=== PATIENT | male | born 1945 | race Caucasian/White ===

== ENCOUNTER 2016-05-22 07:26 | Emergency (ER) | payer MEDICARE ==
[~2016-05-22] VITALS: Ht 170.2 cm; Wt 56.0 kg
[~2016-05-22 07:26] MED LIST: CEPH-460 PO; HYDR-3133 PO; HYDR1CRE15 TD; PERM5CRE TOPICAL
[2016-05-22 07:31] VITALS: BP 208/92; PULSE 66; RESP 20; TEMP 98.1; O2SAT 100
[2016-05-22 07:39] VITALS: BP 214/97; PULSE 66; RESP 17; TEMP 97.8; O2SAT 100
[2016-05-22] MEDS ORDERED: FUROSEMIDE 40 MG/4 ML VIAL IV PUSH ONE (08:00)
--- NOTE | 2016-05-22 08:06 | PD ---
HPI Chief Complaint: Edema Time Seen by Provider: 07:36 Travel History International Travel<30 days: No Contact w/Intl Traveler<30days: No Traveled to known affect area: No History of Present Illness HPI This 70-year-old man who presents to the emergency department complaining of foot swelling and aching bilaterally for the past 3 or 4 days. States he otherwise has been feeling well. No history of previous similar problems. Denies any injuries. Only other complaint is that he states he urinates a lot. He gets up 3-498 about him. He does feel like he goes a fair amount when he goes, denies other symptoms of bladder outlet obstruction such as weak stream, hesitancy, difficulty initiating urination. Denies any medical history. States he was treated for blood pressure some time along time ago, but is not on any medications now. No other complaints. History Past Medical History Medical History: Denies Significant Hx Influenza Vaccination: No Past Surgical History Surgical History: No Previous Surgery Social History Alcohol Use: Yes (occ) Tobacco Use: No Allergies-Medications (Allergen,Severity, Reaction): Coded Allergies: No Known Allergies (Unverified , 05/22/16) Reported Meds & Prescriptions Reported Meds & Active Scripts Active No Active Prescriptions or Reported Medications Review of Systems Except as stated in HPI: all other systems reviewed are Neg Physical Exam Narrative GENERAL: This 70-year-old man, no acute distress. SKIN: Warm and dry. HEAD: Atraumatic. Normocephalic. EYES: Pupils equal and round. No scleral icterus. No injection or drainage. ENT: No nasal bleeding or discharge. Mucous membranes pink and moist. NECK: Trachea midline. No JVD. CARDIOVASCULAR: Regular rate and rhythm. Soft systolic murmur around the apex. RESPIRATORY: No accessory muscle use. Clear to auscultation. Breath sounds equal bilaterally. No Rales. GASTROINTESTINAL: Abdomen soft, non-tender, nondistended. Hepatic and splenic margins not palpable. MUSCULOSKELETAL: No obvious deformities. Pitting edema both lower extremities around the foot and ankle. No erythema redness. No significant pain. NEUROLOGICAL: Awake and alert. No obvious cranial nerve deficits. Motor grossly within normal limits. Normal speech. Data Data Last Documented VS Vital Signs Date Time Temp Pulse Resp B/P Pulse Ox O2 Delivery O2 Flow Rate FiO2 05/22/16 08:17 190/82 05/22/16 08:09 63 1/2/17 07:39 97.8 17 100 Orders Electrocardiogram (05/22/16 07:39) Complete Blood Count With Diff (05/22/16 07:47) Basic Metabolic Panel (Bmp) (05/22/16 07:47) Chest, Pa & Lat (05/22/16 ) Troponin I (05/22/16 07:59) Furosemide Inj (Lasix Inj) (05/22/16 08:00) Labs Laboratory Tests Test 05/22/16 08:00 White Blood Count 9.0 TH/MM3 Red Blood Count 4.55 MIL/MM3 Hemoglobin 14.2 GM/DL Hematocrit 40.4 % Mean Corpuscular Volume 88.8 FL Mean Corpuscular Hemoglobin 31.2 PG Mean Corpuscular Hemoglobin 35.1 % Concent Red Cell Distribution Width 13.3 % Platelet Count 370 TH/MM3 Mean Platelet Volume 8.7 FL Neutrophils (%) (Auto) 76.9 % Lymphocytes (%) (Auto) 15.2 % Monocytes (%) (Auto) 4.9 % Eosinophils (%) (Auto) 1.8 % Basophils (%) (Auto) 1.2 % Neutrophils # (Auto) 6.9 TH/MM3 Lymphocytes # (Auto) 1.4 TH/MM3 Monocytes # (Auto) 0.4 TH/MM3 Eosinophils # (Auto) 0.2 TH/MM3 Basophils # (Auto) 0.1 TH/MM3 CBC Comment DIFF FINAL Differential Comment Sodium Level 139 MEQ/L Potassium Level 3.0 MEQ/L Chloride Level 104 MEQ/L Carbon Dioxide Level 23.6 MEQ/L Anion Gap 11 MEQ/L Blood Urea Nitrogen 7 MG/DL Creatinine 0.78 MG/DL Estimat Glomerular Filtration 98 ML/MIN Rate Random Glucose 90 MG/DL Calcium Level 9.1 MG/DL Troponin I LESS THAN 0.02 NG/ML [facility] Medical Decision Making Medical Screen Exam Complete: Yes Emergency Medical Condition: Yes Interpretation(s) My review of EKG: Normal sinus rhythm at a rate of 67, normal axis, normal intervals, probable LVH with some tall T waves in the anterior precordium and some nonspecific ST depressions laterally. No old for comparison.3 LABS: CBC is unremarkable. CMP is unremarkable Troponins negative. Chest x-ray: No acute disease. Differential Diagnosis Volume overload, renal failure, heart failure, dependent edema, other Narrative Course Medical decision making 70-year-old male presents emergent arm with edema around his feet and ankles. Sleeping in a recliner now. Some urinary abnormalities. We'll check labs rule out renal failure. There is no Rales orthopnea suggest heart failure. He does have a little bit of a murmur that could suggest valvular heart disease. We'll give him a dose of diuretics. Likely outpatient follow-up. FINAL: 70-year-old man with edema, possibly depending, revealed a little volume overloaded. Labs unremarkable. No renal failure. We'll give a couple days of Lasix with potassium, outpatient follow-up. Diagnosis Primary Impression: Edema leg Qualified Code: R60.0 - Bilateral edema of lower extremity Additional Instructions: Take Lasix for the next 3 days as prescribed. Take potassium for the next 3 days as prescribed. Follow-up with your primary physician for repeat evaluation. Sleep with her legs elevated above your head. Return to the emergency department for any new or worsening symptoms. Med/Other Pt SpecificInfo: Prescription(s) given Scripts Potassium Chloride ER 20 Meq Tab20 Meq PO DAILY 3 Days Ref 0 Prov:Luc Greer MD 05/22/16 Furosemide (Lasix)20 Mg Tab20 Mg PO DAILY 3 Days Ref 0 Prov:Luc Greer MD 05/22/16 Disposition: 01 DISCHARGE HOME Condition: Stable Luc Greer MD May 22, 2016 08:06
[2016-05-22 08:09] VITALS: BP 206/94; PULSE 63
[2016-05-22 08:17] VITALS: BP 190/82
[2016-05-22 08:17] LABS: AUTOMATED NEUTROPHIL # 6.9 TH/MM3 (1.8-7.7); BASOPHIL # 0.1 TH/MM3 (0-0.2); BASOPHIL % 1.2 % (0.0-2.0); EOSINOPHIL # 0.2 TH/MM3 (0-0.4); EOSINOPHIL % 1.8 % (0.0-4.0); HEMATOCRIT 40.4 % (39.0-51.0); HEMO FLAGS DIFF FINAL; LYMPH % 15.2 % (9.0-44.0); LYMPHOCYTE # 1.4 TH/MM3 (1.0-4.8); MEAN CELL VOLUME 88.8 FL (80.0-100.0); MEAN CORPUSCULAR HEMOGLOBIN 31.2 PG (27.0-34.0); MEAN CORPUSCULAR HGB CONC 35.1 % (32.0-36.0); MONO % 4.9 % (0.0-8.0); NEUT % 76.9 % (16.0-70.0); PLATELET COUNT 370 TH/MM3 (150-450); RED BLOOD COUNT 4.55 MIL/MM3 (4.50-5.90); RED CELL DISTRIBUTION WIDTH 13.3 % (11.6-17.2)
[2016-05-22 08:30] LABS: BICARBONATE 23.6 MEQ/L (21.0-32.0)
--- NOTE | 2016-05-22 09:00 | RADRPT ---
EXAM DATE/TIME: 05/22/2016 08:51 [facility] COMPARISON: No previous studies available for comparison. INDICATIONS : Shortness of breath, lower leg edema and pain bilaterally. MEDICAL HISTORY : None. SURGICAL HISTORY : None. ENCOUNTER: Initial ACUITY: 3 weeks PAIN SCORE: 0/10 LOCATION: Bilateral chest FINDINGS: PA and lateral views of the chest demonstrate the lungs to be symmetrically aerated without evidence of mass, infiltrate or effusion. The cardiomediastinal contours are unremarkable. Osseous structure s demonstrate high riding humeral heads bilaterally characteristic of rotator cuff pathology.. CONCLUSION: No acute disease. Jorge Rosa MD on May 22, 2016 at 8:58 Board Certified Radiologist. This report was verified electronically.
[2016-05-22] MEDS ORDERED: POTA-163 PO (09:25)
[2016-05-22] MEDS ORDERED: FURO1TAB62 PO (09:25)
[2016-05-22 09:35] VITALS: BP 143/94; PULSE 66; RESP 15; O2SAT 99
--- NOTE | 2016-05-22 18:21 | EKG ---
Date Performed: 05/22/2016 Time Performed: 07:45:56 PTAGE: 70 years EKG: Sinus rhythm POSSIBLE LEFT ATRIAL ENLARGEMENT POSSIBLE LEFT VENTRICULAR HYPERTROPHY MODERATE ST DEPRESSION Since previous tracing, no significant change noted ABNORMAL ECG PREVIOUS TRACING : 05/22/2016 07.44 DOCTOR: Melva Pimentel Interpretating Date/Time 05/22/2016 18:20:01
== END 2016-05-22 09:52 | disposition home or self-care (01) ==
LOC: NEPE 07:26
DX: R60.9 Edema, unspecified (principal); R06.02 Shortness of breath; R94.31 Abnormal electrocardiogram [ECG] [EKG]
CPT/HCPCS: 71020; 80048; 84484; 85025; 93005; 96374; 99284; J1940

== ENCOUNTER 2018-05-02 15:48 | Inpatient (IN) ==
--- NOTE | 2018-05-02 16:35 | ED ---
HPI General Chief complaint: Weakness Stated complaint: no appetite and weakness Time Seen by Provider: 05/02/18 15:52 Source: family Mode of arrival: wheelchair Limitations: altered mental status History of Present Illness MD Complaint: Reports generalized weakness Onset (ago): week(s) (3) Duration: constant and progressively worsening Location: Reports generalized Relieving factors: none Exacerbating factors: other (Will not eat) Context: Reports other (Dementia) Related Data Home Medications Medication Instructions Recorded Confirmed No Known Home Medications 05/02/18 05/02/18 Allergies Allergy/AdvReac Type Severity Reaction Status Date / Time No Known Allergies Allergy Uncoded 05/22/16 07:35 Review of Systems ROS Unobtainable ROS Unobtainable: unobtainable due to mental status [facility] Medical History Medical History Dementia (Acute) Social History Social History Substance History: No History of Abuse Second Hand Smoke Exposure: No Smoking Status: Never smoker How Often Do You Have a Drink Containing Alcohol: Never Recent Travel in [facility] within the Last 8 Weeks: No Recent Out of Country Travel within the Last 8 Weeks: No Immunization History Tetanus Immunization: Unable to Assess Exam Const General: disheveled Nutritional Appearance: malnourished and thin Orientation: other (Sleepy and difficult to arouse) HENMT Head: normal to inspection, normocephalic and atraumatic Face and sinus: dry mucous membranes and other (Eyes are sunken) Eyes Alignment and Position: alignment normal and position abnormal Conjunctivae: conjunctivae normal Sclera: sclerae normal EOM: EOM intact bilaterally Neck Neck: normal visual inspection and full ROM Chest Chest: normal inspection of the chest Resp Effort & Inspection: normal respiratory effort and able to speak in complete sentences Auscultation: clear to auscultation bilaterally Cardio Rate: tachycardic (Heart rate is about 110) Rhythm: regular rhythm GI Inspection: normal to inspection Palpation: soft Back/Spine/Pelvis Cervical Spine: cervical ROM normal Thoracic/Lumbar Spine: thoraco-lumbar ROM normal Skin General: mottling and turgor decreased Nails: other (The nail of his right great toe is almost completely avulsed. There is dried blood around the nail.) Neuro General: other (GCS 2 for eyes, 2 for verbal and 5 for motor with a total of 9) Extrem General: normal to inspection and full ROM Psych Appearance: disheveled Speech and Movement: other Procedures Nerve Block Nerve Block 1: Time Out Performed: Yes Anesthetic Used: lidocaine 1% Location of anesthetic used: right great toe Amount of anesthesia used (mL): 10 Nerve Blocks: digital Procedure Successful: Yes Patient Tolerated Procedure: well Complications: none Course Initial Documented Vital Signs Temperature 98 F 05/02/18 15:57 Pulse Rate 80 05/02/18 15:57 Respiratory Rate 14 05/02/18 15:57 Blood Pressure 113/83 05/02/18 15:57 Pulse Oximetry 98 05/02/18 15:57 Last Documented Vital Signs Temperature 98 F 05/02/18 15:57 Pulse Rate 98 H 05/02/18 18:38 Respiratory Rate 18 05/02/18 18:38 Blood Pressure 116/67 05/02/18 18:38 Pulse Oximetry 100 05/02/18 18:38 Critical Care Time Critical Care Time: Yes Total Critical Care Time: 45 Attestation: Time to perform other separately billable procedures was not included in the critical care time. My time did not include minutes spent treating any other patients simultaneously or on activities that did not directly contribute to the patient's treatment. The services I provided to this patient were to treat and/or prevent clinically significant deterioration due to profound weakness, altered mental status I provided critical care services requiring my management, as noted below: Chart data review, documentation time, medication orders and management, vital sign assessments/reviewing monitor data, ordering and reviewing lab tests, ordering and interpreting/reviewing x-rays and diagnostic studies, care of the patient and discussion of the patient with the admitting physicians Medical Decision Making MDM Narrative Medical decision making narrative: This patient is brought in by family with a chief complaint of weakness. This patient has dementia. His reports that she has not been able to get him to eat anything for the last 3 weeks. She states that his speech became incomprehensible a day or 2 ago. He stopped his right great toe on a piece of furniture several days ago. The patient's son is concerned that this has become infected which is actually what prompted them to come to the ED today. This patient looks severely ill. He is cachectic with mottled skin and tenting of the skin. Mucous membranes are dry. I have called his primary care physician's [employer]. She will have the office pull the patient's chart and call me back such as long-term goals for this patient, code status, etc. This patient was last seen by them on April 08 at which time he was ambulatory and verbal. He was diagnosed with urinary tract infection and treated with Bactrim. The last weight that they have on him was from December and he weighed 64.5 kg. So, he has lost about 9 kg in 4 months. His underlying medical problems include insomnia, anxiety and dementia. He is currently taking no meds. He has no known drug allergies. A digital block was done and the right great toenail was removed. He tolerated this well without complication. The patient's labs look amazing considering how he looks. However, his troponin is elevated. I have ordered heparin. I do not believe that he is currently a candidate for either stress test or catheterization. Therefore, he will be kept here at [place]. His mental status has improved with IV fluids. He is now alert and is saying a few words which makes sense. Medical Screen Exam Complete: Yes Emergency Medical Condition: Yes Differential Diagnosis Differential Diagnosis: Differential diagnosis of weakness includes but is not limited to infection, CVA, electrolyte disturbance, renal failure, hypoglycemia Lab Data Lab results reviewed: Yes I reviewed the patient's lab results. Result diagrams: 05/02/18 16:27 05/02/18 18:07 Lab Results 05/02/18 05/02/18 05/02/18 Range/Units 16:27 16:27 17:15 CBC w Diff Auto diff final WBC 7.0 (4.0-11.0) th/mm3 RBC 5.21 (4.50-5.90) mil/mm3 Hgb 14.9 (13.0-17.0) gm/dL Hct 46.7 (39.0-51.0) % MCV 89.6 (80.0-100.0) fL MCH 28.7 (27.0-34.0) pg MCHC 32.0 (32.0-36.0) % RDW 13.6 (11.6-17.2) % Plt Count 469 H (150-450) th/mm3 MPV 9.5 (7.0-11.0) fL Neut % (Auto) 78.7 H (16.0-70.0) % Lymph % (Auto) 15.0 (9.0-44.0) % [place] % (Auto) 3.4 (0.0-8.0) % Eos % (Auto) 0.1 (0.0-4.0) % Baso % (Auto) 2.8 H (0.0-2.0) % Neut # (Auto) 5.6 (1.8-7.7) th/mm3 Lymph # (Auto) 1.0 (1.0-4.8) th/mm3 [place] # (Auto) 0.2 (0.0-0.9) th/mm3 Eos # (Auto) 0.0 (0.0-0.4) th/mm3 Baso # (Auto) 0.2 (0.0-0.2) th/mm3 WBC Differential . Differential Comment . Sodium (136-145) meq/L Potassium (3.5-5.1) meq/L Chloride (98-107) meq/L Carbon Dioxide (21.0-32.0) meq/L Anion Gap (5-15) meq/L BUN (7-18) mg/dL Creatinine (0.60-1.30) mg/dL Estimated GFR (>89) mL/min Random Glucose (74-106) mg/dL Lactic Acid 2.2 H (0.4-2.0) mmol/L Calcium (8.5-10.1) mg/dL Magnesium (1.5-2.5) mg/dL Total Bilirubin (0.2-1.0) mg/dL AST (15-37) U/L ALT (12-78) U/L Alkaline Phosphatase (45-117) U/L Troponin I (0.02-0.05) ng/mL Total Protein (6.4-8.2) g/dL Albumin (3.4-5.0) g/dL Urine Color Dark-yellow (Yellw/Straw) Urine Clarity Clear (Clear) Urine pH 6.0 (5.0-8.5) Ur Specific [place] Greater/equal 1.030 (1.002-1.035) Urine Protein Trace (Neg-Trace) mg/dL Urine Glucose (UA) Negative (Negative) mg/dL Urine Ketones 40 H (Negative) mg/dL Urine Occult Blood Small H (Negative) Urine Nitrate Negative (Negative) Urine Bilirubin Negative (Negative) Urine Ictotest Negative (Negative) Urine Urobilinogen 1.0 (Less than 2) mg/dL Ur Leukocyte Esterase Negative (Negative) Urine RBC 0-3 (0-3) /hpf Urine WBC 0-5 (0-5) /hpf Urine Bacteria Few H (None) /hpf Urine Mucus Moderate H (Occasional) /lpf Micro UA Comment Cath-culture ind Ur Microscopic Review Microscopic reviewed Urine Culture Comments Cath-cult indicated 05/02/18 Range/Units 18:07 CBC w Diff WBC (4.0-11.0) th/mm3 RBC (4.50-5.90) mil/mm3 Hgb (13.0-17.0) gm/dL Hct (39.0-51.0) % MCV (80.0-100.0) fL MCH (27.0-34.0) pg MCHC (32.0-36.0) % RDW (11.6-17.2) % Plt Count (150-450) th/mm3 MPV (7.0-11.0) fL Neut % (Auto) (16.0-70.0) % Lymph % (Auto) (9.0-44.0) % [place] % (Auto) (0.0-8.0) % Eos % (Auto) (0.0-4.0) % Baso % (Auto) (0.0-2.0) % Neut # (Auto) (1.8-7.7) th/mm3 Lymph # (Auto) (1.0-4.8) th/mm3 [place] # (Auto) (0.0-0.9) th/mm3 Eos # (Auto) (0.0-0.4) th/mm3 Baso # (Auto) (0.0-0.2) th/mm3 WBC Differential Differential Comment Sodium 138 (136-145) meq/L Potassium 4.3 (3.5-5.1) meq/L Chloride 103 (98-107) meq/L Carbon Dioxide 26.1 (21.0-32.0) meq/L Anion Gap 9 (5-15) meq/L BUN 31 H (7-18) mg/dL Creatinine 1.00 (0.60-1.30) mg/dL Estimated GFR 73 L (>89) mL/min Random Glucose 109 H (74-106) mg/dL Lactic Acid (0.4-2.0) mmol/L Calcium 8.3 L (8.5-10.1) mg/dL Magnesium 2.7 H (1.5-2.5) mg/dL Total Bilirubin 1.2 H (0.2-1.0) mg/dL AST 13 L (15-37) U/L ALT 14 (12-78) U/L Alkaline Phosphatase 113 (45-117) U/L Troponin I 0.18 H (0.02-0.05) ng/mL Total Protein 6.9 (6.4-8.2) g/dL Albumin 2.4 L (3.4-5.0) g/dL Urine Color (Yellw/Straw) Urine Clarity (Clear) Urine pH (5.0-8.5) Ur Specific [place] (1.002-1.035) Urine Protein (Neg-Trace) mg/dL Urine Glucose (UA) (Negative) mg/dL Urine Ketones (Negative) mg/dL Urine Occult Blood (Negative) Urine Nitrate (Negative) Urine Bilirubin (Negative) Urine Ictotest (Negative) Urine Urobilinogen (Less than 2) mg/dL Ur Leukocyte Esterase (Negative) Urine RBC (0-3) /hpf Urine WBC (0-5) /hpf Urine Bacteria (None) /hpf Urine Mucus (Occasional) /lpf Micro UA Comment Ur Microscopic Review Urine Culture Comments ECG Data EKG Prior to Arrival: No Attestation: I personally reviewed and interpreted this ECG as follows: (EKG shows a sinus tachycardia with a rate of 106. He has a left bundle branch block.) Discharge Plan Discharge Disposition Patient Disposition: ED Admit(ED Internal Use Only) Discharge Order Discharge Orders: ED Use Only Admit Order (Routine); Ordered 05/02/18 Ordered By: Chelsie Hernández Discharge Details Diagnosis: Acute dehydration, Adult failure to thrive, Elevated troponin, Avulsion of nail Physicians Team ED Provider: Chelsie Hernández Primary Care Provider: Yomi Coleman Rxs /Orders / Referrals /Forms Prescriptions: No Action No Known Home Medications RF: 0 Discharge Interventions Interventions: Vital Signs Last Done: 05/02/18 18:38 Status ED Status: With Doctor
[2018-05-02 16:43] LABS: Baso # (Auto) 0.2 th/mm3 (0.0-0.2); Baso % (Auto) 2.8 % (0.0-2.0); Eos % (Auto) 0.1 % (0.0-4.0); Hematocrit 46.7 % (39.0-51.0); Hemoglobin 14.9 gm/dL (13.0-17.0); Mean Corpuscular Hemoglobin 28.7 pg (27.0-34.0); Mean Corpuscular Volume 89.6 fL (80.0-100.0); Mean Platelet Volume 9.5 fL (7.0-11.0); Mono # (Auto) 0.2 th/mm3 (0.0-0.9); Mono % (Auto) 3.4 % (0.0-8.0); Neut # (Auto) 5.6 th/mm3 (1.8-7.7); Neut % (Auto) 78.7 % (16.0-70.0); Platelet Count 469 th/mm3 (150-450); Red Blood Count 5.21 mil/mm3 (4.50-5.90); Red Cell Distribution Width 13.6 % (11.6-17.2)
[2018-05-02] MEDS: Sod Chloride 0.9% Inj 1,000 ML IV.SIG SCH ×2 (16:47→18:17)
[2018-05-02] MEDS ORDERED: Lidocaine 1% Inj 50 ML Vial ONE (17:13)
[2018-05-02 17:21] LABS: Clarity,Urine Clear (Clear); Color,Urine Dark-Yellow (Yellw/Straw); Glucose,Urine (UA) Negative (Negative); Leukocyte Esterase,Urine Negative (Negative); Nitrite,Urine Negative (Negative); Specific Gravity,Urine Greater/Equal 1.030 (1.002-1.035)
[2018-05-02 17:23] LABS: Bilirubin,Urine Negative (Negative); Ictotest,Urine Negative (Negative)
[2018-05-02 17:28] LABS: Bacteria,Urine Few /hpf; Mucus,Urine Moderate /lpf (Occasional); RBC,Urine 0-3 /hpf (0-3); WBC,Urine 0-5 /hpf (0-5)
[2018-05-02] MEDS ORDERED: Lidocaine 1% Inj 50 ML Vial INFILTRATN ONE (18:10)
[2018-05-02 18:21] LABS: Chloride 103 meq/L (98-107); Potassium 4.3 meq/L (3.5-5.1); Sodium 138 meq/L (136-145)
[2018-05-02 18:24] LABS: Albumin 2.4 g/dL (3.4-5.0); Anion Gap 9 meq/L (5-15); Calcium 8.3 mg/dL (8.5-10.1); Carbon Dioxide 26.1 meq/L (21.0-32.0); Glucose,Random 109 mg/dL (74-106); Magnesium 2.7 mg/dL (1.5-2.5)
[2018-05-02] MEDS ORDERED: Ketorolac Inj 30 MG/ML (IVP) Vial IV.PUSH ONE (18:24)
[2018-05-02 18:25] LABS: Blood Urea Nitrogen 31 mg/dL (7-18)
[2018-05-02 18:27] LABS: Alanine Aminotransferase 14 U/L (12-78)
[2018-05-02 18:28] LABS: Aspartate Aminotransferase 13 U/L (15-37); Glomerular Filtration Rate 73 mL/min (>89)
[2018-05-02 18:29] LABS: Total Protein 6.9 g/dL (6.4-8.2)
[2018-05-02 18:30] LABS: Alkaline Phosphatase 113 U/L (45-117)
[2018-05-02 18:33] LABS: Troponin I 0.18 ng/mL (0.02-0.05)
[2018-05-02] MEDS ORDERED: Heparin 10,000 UNITS/10 ML Vial (for IV use) IV.PUSH STA (18:34)
[2018-05-02 18:56] LABS: Activated Partial Thrombo Time 33.8 sec (23.4-31.7); INR 1.5 Ratio; Prothrombin Time 14.7 sec (9.8-11.6)
[2018-05-02] MEDS ORDERED: Bisacodyl 10 MG Supp RECTAL PRN (19:08)
[2018-05-02] MEDS ORDERED: Acetaminophen 325 MG Tablet PO PRN (19:08)
[2018-05-02] MEDS: Sod Chloride 0.9% Inj 1,000 ML IV.CONT SCH (19:40)
[2018-05-02] MEDS: Senna/Docusate Sodium 8.6/50 MG Tablet PO SCH (21:55)
[2018-05-03] MEDS ORDERED: Heparin 10,000 UNITS/10 ML Vial (for IV use) IV.PUSH PRN (00:35)
[2018-05-03 03:44] LABS: Hematocrit 37.9 % (39.0-51.0); Hemoglobin 12.1 gm/dL (13.0-17.0); Mean Corpuscular Hemoglobin 29.5 pg (27.0-34.0); Mean Corpuscular Volume 92.2 fL (80.0-100.0); Mean Platelet Volume 9.1 fL (7.0-11.0); Platelet Count 394 th/mm3 (150-450); Red Blood Count 4.11 mil/mm3 (4.50-5.90); White Blood Count 6.4 th/mm3 (4.0-11.0)
[2018-05-03] MEDS: Sod Chloride 0.9% Inj 1,000 ML IV.CONT SCH ×2 (07:49→22:11)
[2018-05-03] MEDS: Senna/Docusate Sodium 8.6/50 MG Tablet PO SCH ×2 (09:00→22:11)
--- NOTE | 2018-05-03 10:53 | ECG ---
Date Performed: 05/02/2018 Time Performed: 16:01:19 PTAGE: 72 years EKG: SINUS TACHYCARDIA LEFT AXIS DEVIATION LEFT BUNDLE BRANCH BLOCK ABNORMAL ECG PREVIOUS TRACING : 05/22/2016 07.45 Compared to previous tracing, left bundle branch block yasemin nuzhat is now present. DOCTOR: Collins Yung Interpretating Date/Time 05/03/2018 10:52:58
--- NOTE | 2018-05-03 11:05 | P.HPFP ---
History of Present Illness Primary Care Physician: Yomi Coleman DO History of Present Illness: History taken from chart, Patient unable to provide any information Per notes woke brought him for Weakness and toe pain. He has not been eating and family reports significant weight loss. He was last seen in office April 08, he was ambulatory, and verbal. Past medical history is Dementia, Insomnia. He is not on any medications. - Diagnosis (1) Acute dehydration (2) Adult failure to thrive (3) Dementia (4) Elevated troponin Inpatient Certification: I certify that the inpatient services were ordered in accordance with Medicare regulations governing the order. This includes certification that hospital inpatient services are reasonable and necessary and in the case of services not specified as inpatient-only under 42 CFR 419.22(n), that they are appropriately provided as inpatient services in accordance to with the 2-midnight benchmark under 43 CFR 412.3(e) Estimated Total Length of Stay (Days): 3 Plans for Post Hospital Care: Not yet determined PMF - History History Provided By: Family Member - Medical History Medical History: Medical History (Last Reviewed 05/02/18 @ 16:27 by Chelsie Hernández) Dementia - Tobacco History Second Hand Smoke Exposure: No Tobacco Use In Past 30 Days: No Smoking Status: Never smoker - Alcohol History How Often Do You Have a Drink Containing Alcohol: Never - Substance Use History Substance History: No History of Abuse - Travel History Recent Travel in the [place] Within the Last 8 Weeks: No Recent Travel Out of the Country Within the Last 8 Weeks: No - Immunization History Tetanus Immunization: >5 Years Hx Influenza Vaccine This Season: No Medications and Allergies Active Medications: Active Medications Acetaminophen (Tylenol) 650 mg PO Q4H PRN PRN Reason: Temp > 100.4 Al Hydroxide/Mg Hydroxide (Milk Of Magnesia Liq) 30 ml PO Q12H PRN PRN Reason: Mild Constipation Bisacodyl (Dulcolax Supp) 10 mg RECTAL DAILY PRN PRN Reason: SEVERE CONSITIPATION Heparin Sodium (Porcine) (Heparin Inj) 2,500 units IV.PUSH UNSCH PRN PRN Reason: aPTT 25-39 Sodium Chloride (Ns Inj) 1,000 mls @ 84 mls/hr IV.CONT .[id number] [facility] Last Admin: 05/03/18 07:49 Dose: 84 mls/hr Lactulose (Lactulose Liq) 30 ml PO DAILY PRN PRN Reason: SEVERE CONSITIPATION Ondansetron HCl (Zofran Inj) 4 mg IV.PUSH Q6H PRN PRN Reason: NAUSEA OR VOMITING Senna/Docusate Sodium (Izabela-Colace) 1 tab PO BID [facility] Last Admin: 05/02/18 21:55 Dose: Not Given Sennosides (Senokot) 17.2 mg PO Q12H PRN PRN Reason: Moderate Constipation Sodium Chloride (Ns Flush) 2 ml IV.FLUSH PRN PRN PRN Reason: FLUSH AFTER USING IV ACCESS Sodium Chloride (Ns Flush) 2 ml IV.FLUSH PRN PRN PRN Reason: FLUSH AFTER USING IV ACCESS Sodium Chloride (Ns Flush) 2 ml IV.FLUSH BID [facility] Last Admin: 05/02/18 21:54 Dose: Not Given Sodium Chloride (Ns Flush) 2 ml IV.FLUSH PRN PRN PRN Reason: FLUSH AFTER USING IV ACCESS Allergies Allergy/AdvReac Type Severity Reaction Status Date / Time No Known Allergies Allergy Uncoded 05/22/16 07:35 Home Medications Medication Instructions Recorded Confirmed Type No Known Home Medications 05/02/18 05/02/18 History Exam Vital signs: Vital Signs 05/02/18 15:57 05/02/18 16:00 05/02/18 16:51 Temperature 98 F Pulse Rate 80 103 H Respiratory Rate 14 18 Blood Pressure 113/83 119/74 Pulse Oximetry 98 98 93 L 05/02/18 18:38 05/02/18 20:19 05/02/18 21:00 Temperature 97.5 F L Pulse Rate 98 H 102 H 106 H Respiratory Rate 18 18 36 H Blood Pressure 116/67 118/68 85/60 L Pulse Oximetry 100 96 96 05/02/18 22:00 05/03/18 00:00 05/03/18 01:00 Temperature 97.5 F L Pulse Rate 106 H 92 H 90 Respiratory Rate 24 Blood Pressure 102/59 L 97/58 L Pulse Oximetry 96 05/03/18 02:00 05/03/18 02:58 05/03/18 04:00 Temperature Pulse Rate 86 86 95 H Respiratory Rate Blood Pressure Pulse Oximetry 05/03/18 04:25 05/03/18 05:00 05/03/18 06:00 Temperature 97.5 F L Pulse Rate 84 95 H 89 Respiratory Rate 18 Blood Pressure 101/57 L Pulse Oximetry 96 05/03/18 07:00 05/03/18 08:00 05/03/18 09:00 Temperature 98.1 F 98.1 F Pulse Rate 92 H 84 88 Respiratory Rate 15 19 27 H Blood Pressure 114/79 102/59 L 109/61 Pulse Oximetry 05/03/18 10:00 Temperature Pulse Rate 84 Respiratory Rate 25 H Blood Pressure 117/72 Pulse Oximetry Intake & Output 05/02/18 05/03/18 05/03/18 18:59 06:59 18:59 Intake Total 0 / 0 1084 / 1084 Output Total 300 / 300 Balance 0 / 0 784 / 784 Weight 56 kg 59.5 kg Intake: IV 0 / 0 1084 / 1084 NS Inj 1,000 ML @ 84 mls/hr IV. 84 / 84 CONT .[id number] [facility] Rx#: [id number] NS Inj 1,000 ML @ 2000 mls/hr 0 / 0 1000 / 1000 IV.SIG Q30M [facility] Rx#:[id number] Oral 0 / 0 Output: Urine 300 / 300 Other: Weight On Admission 58.6 kg - Constitutional no acute distress - Routine Neck Exam Present: supple - Routine Respiratory Exam Present: CTA bilaterally - Routine Cardiovascular Exam Present: S1, S2 - Routine Abdominal Exam Present: soft, normoactive bowel sounds - Routine Skin Exam Present: intact, dry, warm - Routine Neurological Exam Present: alert Results - Labs Result diagrams: 05/03/18 03:15 05/02/18 18:07 Abnormal lab results 05/02/18 05/02/18 05/02/18 Range/Units 16:27 16:27 16:27 RBC (4.50-5.90) mil/mm3 Hgb (13.0-17.0) gm/dL Hct (39.0-51.0) % Plt Count 469 H (150-450) th/mm3 Neut % (Auto) 78.7 H (16.0-70.0) % Baso % (Auto) 2.8 H (0.0-2.0) % PT 14.7 H (9.8-11.6) sec APTT 33.8 H (23.4-31.7) sec BUN (7-18) mg/dL Estimated GFR (>89) mL/min Random Glucose (74-106) mg/dL Lactic Acid 2.2 H (0.4-2.0) mmol/L Calcium (8.5-10.1) mg/dL Magnesium (1.5-2.5) mg/dL Total Bilirubin (0.2-1.0) mg/dL AST (15-37) U/L Troponin I (0.02-0.05) ng/mL Albumin (3.4-5.0) g/dL Urine Ketones (Negative) mg/dL Urine Occult Blood (Negative) Urine Bacteria (None) /hpf Urine Mucus (Occasional) /lpf 05/02/18 05/02/18 05/02/18 Range/Units 17:15 18:07 19:30 RBC (4.50-5.90) mil/mm3 Hgb (13.0-17.0) gm/dL Hct (39.0-51.0) % Plt Count (150-450) th/mm3 Neut % (Auto) (16.0-70.0) % Baso % (Auto) (0.0-2.0) % PT (9.8-11.6) sec APTT (23.4-31.7) sec BUN 31 H (7-18) mg/dL Estimated GFR 73 L (>89) mL/min Random Glucose 109 H (74-106) mg/dL Lactic Acid 2.5 H (0.4-2.0) mmol/L Calcium 8.3 L (8.5-10.1) mg/dL Magnesium 2.7 H (1.5-2.5) mg/dL Total Bilirubin 1.2 H (0.2-1.0) mg/dL AST 13 L (15-37) U/L Troponin I 0.18 H (0.02-0.05) ng/mL Albumin 2.4 L (3.4-5.0) g/dL Urine Ketones 40 H (Negative) mg/dL Urine Occult Blood Small H (Negative) Urine Bacteria Few H (None) /hpf Urine Mucus Moderate H (Occasional) /lpf 05/02/18 05/03/18 05/03/18 Range/Units 19:45 03:15 03:15 RBC 4.11 L (4.50-5.90) mil/mm3 Hgb 12.1 L D (13.0-17.0) gm/dL Hct 37.9 L (39.0-51.0) % Plt Count (150-450) th/mm3 Neut % (Auto) (16.0-70.0) % Baso % (Auto) (0.0-2.0) % PT (9.8-11.6) sec APTT 43.4 H D (23.4-31.7) sec BUN (7-18) mg/dL Estimated GFR (>89) mL/min Random Glucose (74-106) mg/dL Lactic Acid (0.4-2.0) mmol/L Calcium (8.5-10.1) mg/dL Magnesium (1.5-2.5) mg/dL Total Bilirubin (0.2-1.0) mg/dL AST (15-37) U/L Troponin I 0.18 H (0.02-0.05) ng/mL Albumin (3.4-5.0) g/dL Urine Ketones (Negative) mg/dL Urine Occult Blood (Negative) Urine Bacteria (None) /hpf Urine Mucus (Occasional) /lpf Short CBC 05/02/18 05/03/18 Range/Units 16:27 03:15 WBC 7.0 6.4 (4.0-11.0) th/mm3 Hgb 14.9 12.1 L D (13.0-17.0) gm/dL Hct 46.7 37.9 L (39.0-51.0) % Plt Count 469 H 394 (150-450) th/mm3 BMP 05/02/18 18:07 Sodium 138 Potassium 4.3 Chloride 103 Carbon Dioxide 26.1 BUN 31 H Creatinine 1.00 Calcium 8.3 L Cardiac Enzymes 05/02/18 05/02/18 Range/Units 18:07 19:45 Troponin I 0.18 H 0.18 H (0.02-0.05) ng/mL Liver Function 05/02/18 Range/Units 18:07 Total Bilirubin 1.2 H (0.2-1.0) mg/dL AST 13 L (15-37) U/L ALT 14 (12-78) U/L Alkaline Phosphatase 113 (45-117) U/L Albumin 2.4 L (3.4-5.0) g/dL Urine 12/13/18 Range/Units 17:15 Urine Color Dark-yellow (Yellw/Straw) Urine Clarity Clear (Clear) Urine pH 6.0 (5.0-8.5) Ur Specific [place] Greater/equal 1.030 (1.002-1.035) Urine Protein Trace (Neg-Trace) mg/dL Urine Glucose (UA) Negative (Negative) mg/dL Caprini VTE Risk Assessment Caprini VTE Risk Assessment: Moderate/High Risk (score >= 2) Caprini Risk Assessment Model: Point Value = 1 Point Value = 2 Point Value = 3 Point Value = 5 Age 41-60 Minor surgery BMI > 25 kg/m2 Swollen legs Varicose veins or History of unexplained or recurrent spontaneous Oral contraceptives or hormone replacement Sepsis (< 1 month) Serious lung disease, including pneumonia (< 1 month) Abnormal pulmonary function Acute myocardial infarction Congestive heart failure (< 1 month) History of inflammatory bowel disease Medical patient at bed rest Age 61-74 Arthroscopic surgery Major open surgery (> 45 min) Laparoscopic surgery (> 45 min) Malignancy Confined to bed (> 72 hours) Immobilizing plaster cast Central venous access Age >= 75 History of VTE Family history of VTE Factor V Leiden Prothrombin [id number] Lupus anticoagulant Anticardiolipin antibodies Elevated serum homocysteine Heparin-induced thrombocytopenia Other congenital or acquired thrombophilia Stroke (< 1 month) Elective arthroplasty Hip, pelvis, or leg fracture Acute spinal cord injury (< 1 month) Prophylaxis Regimen: Total Risk Factor Score Risk Level Prophylaxis Regimen 0-1 Low Early ambulation 2 Moderate Order ONE of the following: *Sequential Compression Device (SCD) *Heparin 5000 units SQ BID 3-4 Higher Order ONE of the following medications: *Heparin 5000 units SQ TID *Enoxaparin/Lovenox 40 mg SQ daily (WT < 150 kg, CrCl > 30 mL/min) *Enoxaparin/Lovenox 30 mg SQ daily (WT < 150 kg, CrCl > 10-29 mL/min) *Enoxaparin/Lovenox 30 mg SQ BID (WT < 150 kg, CrCl > 30 mL/min) AND/OR *Sequential Compression Device (SCD) 5 or more Highest Order ONE of the following medications: *Heparin 5000 units SQ TID (Preferred with Epidurals) *Enoxaparin/Lovenox 40 mg SQ daily (WT < 150 kg, CrCl > 30 mL/min) *Enoxaparin/Lovenox 30 mg SQ daily (WT < 150 kg, CrCl > 10-29 mL/min) *Enoxaparin/Lovenox 30 mg SQ BID (WT < 150 kg, CrCl > 30 mL/min) AND *Sequential Compression Device (SCD) Assessment and Plan - Assessment (1) Acute dehydration Code(s): E86.0 - Dehydration Status: Acute Plan: has responded with IVF, NS 84/hr (2) Adult failure to thrive Code(s): R62.7 - Adult failure to thrive Status: Acute Plan: Family reports not eating and has significant weight loss. Swallow eval, add appetite stimulant (3) Dementia Code(s): F03.90 - Unspecified dementia without behavioral disturbance Status: Acute Plan: He has had significant decline in last month, will consult Neuro. He was ambulatory and verbal last month. (4) Elevated troponin Code(s): R74.8 - Abnormal levels of other serum enzymes Status: Acute Plan: Hard to assess chest pain, cardiology consulted. H&P: Quality - VTE Deep Vein Thrombosis/Pulmonary Embolism Present on Admission: No
--- NOTE | 2018-05-03 13:53 | P.DIET ---
Nutritional Evaluation Type of nutrition evaluation: initial Nutrition screening: Weight Loss > 10 lbs ([facility] consult for weight loss) Objective - Diagnosis weakness, poor appetite ongoing for three weeks - Objective Body Mass Index: 22.5 [place] body weight: 59 kg % IBW: 99 Body Weight Used for Calculations: Actual Energy Needs - Lower Range (kCal/kg): 30 Energy Needs - Upper Range (kCal/kg): 35 Lower Limit kCal/kg (kCals): 1,758 Upper Limit kCal/kg (kCals): 2,051 Lower Limit Protein Factor (Grams per Kg): 1 Upper Limit Protein Factor (Grams per Kg): 1.2 Lower Protein Needs (Protein): 59 Upper Protein Needs (Protein): 70 Fluid Factor (ml/kg): 30 Estimated Fluid Needs (ml): 1,758 Dietitian Reviewed in Medical Record: Current diet, Curent medications, Labs, Medical history Diet Order: Regular Oral Diet Intake Amount: Poor <50% (Per MD note, pt's reports that pt has not eaten for three weeks) Objective Comments: PMH; dementia Labs; reviewed, nutritionally unremarkable Medications; reviewed Skin; decreased turgor per MD note indicating dehydration Appearance; cachectic per MD note Assessment Assessment: Pt is at nutritional risk 2/2 dx of weakness and poor appetite ongoing for three weeks. [facility] consult for weight loss screen. Per MD note, pt's reports that she has not been able to get him to eat anything because he is very weak. On admission pt was weighed at 58.6kg however per MD note pt was weighed in December at 64.5kg indicating a weight loss of about 6kg or 10% of body weight in 4 months. Per MD note, pt appears malnourished with adult FTT and I am agreeable to this based percentage of weight loss and ongoing poor appetite. At this time would recommend to offer pt Ensure nutritional supplement BID to provide 250kcals and 9g of protein. Depending upon pt goals determined, may need to consider tube feeding if pt continues to have poor appetite and weight loss. Recommendations: 1. Ensure supplement BID 2. Continue to monitor hydration status 3. Continue to monitor for weight loss 4. Consider Tube feed based on pt goals Dietitian to Monitor: Lab values, Supplement acceptance, PO Intake
[2018-05-03 22:42] LABS: Free T4 (Free Thyroxine) 1.26 ng/dL (0.76-1.46); Vitamin B12 209 pg/mL (193-986)
[2018-05-04 06:22] LABS: Hematocrit 38.3 % (39.0-51.0); Hemoglobin 12.5 gm/dL (13.0-17.0); Mean Corpuscular HGB Conc 32.6 % (32.0-36.0); Mean Corpuscular Hemoglobin 29.1 pg (27.0-34.0); Mean Corpuscular Volume 89.1 fL (80.0-100.0); Mean Platelet Volume 8.4 fL (7.0-11.0); Platelet Count 362 th/mm3 (150-450); Red Cell Distribution Width 13.2 % (11.6-17.2); White Blood Count 6.2 th/mm3 (4.0-11.0)
[2018-05-04] MEDS: Sod Chloride 0.9% Inj 1,000 ML IV.CONT SCH ×2 (10:38→20:31)
[2018-05-04] MEDS: Senna/Docusate Sodium 8.6/50 MG Tablet PO SCH ×2 (10:40→20:30)
--- NOTE | 2018-05-04 13:23 | P.PNFP ---
Subjective Interval history: He is awake and conversive with family in the room. He remains pleasantly confused not so different than his baseline. Neuro and Cards W/U are in progress. Results - Labs Result diagrams: 05/04/18 05:55 05/02/18 18:07 Abnormal lab results 05/04/18 05/04/18 Range/Units 05:55 05:55 RBC 4.30 L (4.50-5.90) mil/mm3 Hgb 12.5 L (13.0-17.0) gm/dL Hct 38.3 L (39.0-51.0) % ESR 61 H (0-20) mm/hr Short CBC 05/04/18 Range/Units 05:55 WBC 6.2 (4.0-11.0) th/mm3 Hgb 12.5 L (13.0-17.0) gm/dL Hct 38.3 L (39.0-51.0) % Plt Count 362 (150-450) th/mm3 Physical Exam Vital signs: Vital Signs 05/03/18 14:00 05/03/18 15:00 05/03/18 16:00 Temperature 97.9 F Pulse Rate 86 88 88 Respiratory Rate 19 21 22 Blood Pressure 115/72 122/72 118/69 Pulse Oximetry 05/03/18 17:00 05/03/18 18:00 05/03/18 20:00 Temperature 98.1 F 98.6 F Pulse Rate 94 H 88 100 H Respiratory Rate 37 H 19 35 H Blood Pressure 130/68 114/63 129/77 Pulse Oximetry 100 05/03/18 22:00 05/04/18 00:00 05/04/18 02:00 Temperature 98.3 F Pulse Rate 91 H 84 74 Respiratory Rate 40 H 32 H 22 Blood Pressure 111/55 L 119/67 111/64 Pulse Oximetry 100 100 99 05/04/18 04:00 05/04/18 06:00 05/04/18 08:00 Temperature 98.7 F Pulse Rate 74 77 84 Respiratory Rate 26 H 43 H Blood Pressure 121/72 133/69 Pulse Oximetry 97 05/04/18 09:00 05/04/18 10:00 05/04/18 11:20 Temperature Pulse Rate 80 82 90 Respiratory Rate 23 33 H 38 H Blood Pressure 128/64 132/70 135/79 Pulse Oximetry 86 L 05/04/18 12:00 Temperature Pulse Rate 90 Respiratory Rate Blood Pressure Pulse Oximetry Intake & Output 05/03/18 05/04/18 05/04/18 18:59 06:59 18:59 Intake Total 1360 / 1360 1000 / 1000 Output Total 390 / 390 525 / 525 Balance -390 / -390 835 / 835 1000 / 1000 Weight 59.3 kg Intake: IV 1000 / 1000 1000 / 1000 NS Inj 1,000 ML @ 84 mls/hr IV. 1000 / 1000 1000 / 1000 CONT .[id number] [facility] Rx#: [id number] Oral 360 / 360 Output: Urine 390 / 390 Urine Amount (Catheter) 525 / 525 Indwelling Urethral Catheter 525 / 525 - Constitutional no acute distress, thin, chronically ill appearing - Routine HEENT Exam Head: Present: normocephalic, atraumatic Eye: Present: normal accommodation ENT: Present: mucous membranes moist - Routine Neck Exam Present: supple, full ROM - Routine Respiratory Exam Present: CTA bilaterally - Routine Cardiovascular Exam Present: RRR - Routine Abdominal Exam Present: soft, normoactive bowel sounds - Routine Skin Exam Present: intact - Routine Neurological Exam Present: alert, altered mental status - Detailed Neurological Exam: Coma Scale Eye Opening: Spontaneous Verbal Response: Confused Motor Response: Obey commands [place] Coma Scale Total: 14 - Routine Psychiatric Exam Present: anxious - Urinary Catheter Management Indwelling Urethral Catheter Cath placed during this visit: yes Reason for continuing: Hourly intake/output Insertion date: 05/02/18 Insertion time: 17:14 Assessment and Plan - Assessment (1) Acute dehydration Code(s): E86.0 - Dehydration Status: Acute Plan: has responded with IVF, NS 84/hr (2) Adult failure to thrive Code(s): R62.7 - Adult failure to thrive Status: Acute Plan: Family reports not eating and has significant weight loss. Swallow eval, add appetite stimulant. Ensure ordered for today. (3) Dementia Code(s): F03.90 - Unspecified dementia without behavioral disturbance Status: Acute Plan: He has had significant decline in last month, Neuro following. He was ambulatory and verbal last month and is pretty much back to baseline today, though he is confused at his baseline. Neuro has ordered MRI so I have ordered Ativan for sedation for the study. Will cont to monitor. (4) Elevated troponin Code(s): R74.8 - Abnormal levels of other serum enzymes Status: Acute Plan: Hard to assess chest pain, cardiology consulted and is considering move to for heart study. - Assessment and Plan 05/04/18 - He is back to baseline mentally and is confused and anxious. He is to have MRI per Neuro and Cards is considering transfer to for Cards W/U for elevated troponin. We will F/U Neuro and Cards recommendations and cont to monitor closely. I have also ordered Tums for his indigestion and will monitor closely. Discussed Condition With: Patient, RN and brother at bedside (3) Dementia Qualifiers: Dementia type: other frontotemporal dementia Dementia behavioral disturbance : with behavioral disturbance Qualified Code(s): G31.09 - Other frontotemporal dementia; F02.81 - Dementia in other diseases classified elsewhere with behavioral disturbance
[2018-05-04 13:42] LABS: Chloride 108 meq/L (98-107); Potassium 3.5 meq/L (3.5-5.1); Sodium 139 meq/L (136-145)
[2018-05-04 13:45] LABS: Calcium 7.9 mg/dL (8.5-10.1)
[2018-05-04 13:46] LABS: Anion Gap 11 meq/L (5-15); Glucose,Random 70 mg/dL (74-106)
[2018-05-04 14:08] LABS: Alanine Aminotransferase 13 U/L (12-78); Alkaline Phosphatase 90 U/L (45-117); Aspartate Aminotransferase 17 U/L (15-37); Blood Urea Nitrogen 18 mg/dL (7-18); Glomerular Filtration Rate Greater Than 89 mL/min (>89); Total Protein 5.9 g/dL (6.4-8.2)
--- NOTE | 2018-05-04 16:27 | MB ---
cc: Red Stephenson MD DATE: 05/04/2018 HISTORY OF PRESENT ILLNESS: Yomi Cassidy is a 72-year-old man came in for weakness, not eating, weight loss, history of dementia and insomnia. Takes no medications at home. I am asked to see him for dementia, change in mental status. He has been waxing and waning far as his level of agitation. He has had a poor appetite recently. Unable to get any other general social history or past medical history on him. CURRENT MEDICATIONS: 1. Tylenol. 2. Tums. 3. Subcutaneous heparin. 4. Ativan p.r.n. PHYSICAL EXAMINATION: VITAL SIGNS: Sinus rhythm, heart rate 96-122. Afebrile. Blood pressure 133/72. NECK: There were no carotid bruits. HEART: Regular rate and rhythm. I did not detect a murmur. NEUROLOGIC: Pupils are equal. Visual yun hard to tell; he looks at you and he reacts to threat but will not count fingers for me. Face was symmetric. He moves all extremities well. Toes, withdrew bilaterally. DTRs trace throughout. Seems to feel discomfort throughout. He is initially sleeping, but wakes up. Says a few things that do make sense. Very hard of hearing. LABORATORY DATA: Sedimentation rate 61. CBC essentially normal. Rheumatoid factor negative. UA was negative. Basic metabolic profile was essentially normal. Troponin 0.18. B12 is only 209. TSH is normal. Coags: INR initially was 1.5. He is scheduled for an MRI today of the brain. Ammonia level is normal. LFTs normal. IMPRESSION: Some history of dementia. Very hard of hearing. He will get a B12 shot. If he is thought to have cardiac problems, I would recommend giving him at least an aspirin, and will get an EEG on him, follow up his other lab tests. Overall, he was nonfocal neurologically. We will check a sleep chart on him, as he did not sleep last night, and it is possible that that could be also increasing his agitation. We will give him a B12 shot. Depending on how he does, we could consider some memory medicines on him and also outpatient followup for dementia. MD ANGELA Bauer/sabrina , 04:04 PM , 04:10 PM
[2018-05-04] MEDS ORDERED: Gadobutrol PF 7.5 MMOL/7.5 ML Vial (for RAD) IV.SIG ONE (17:21)
--- NOTE | 2018-05-04 17:37 | MR ---
EXAM DATE: 05/04/2018 5:24 PM EST AGE/SEX: 72 years / Male INDICATIONS: Confusion. CLINICAL DATA: This is the patient's initial encounter. Patient reports that signs and symptoms have been present for 1 day and indicates a pain score of 0/10. MEDICAL/SURGICAL HISTORY: Dementia. Umbilical hernia repair. Jaw reconstruction ORIF. COMPARISON: POI, MR BRAIN W AND W/O CONTRAST, 01/03/2017. . TECHNIQUE: Multiplanar, multisequence examination of the brain was performed without and with 6 ml Ga davist (gadobutrol) contrast as a single exam dose. FINDINGS: There is no evidence for intracranial hemorrhage, mass effect, mass lesions, edema, or extra-axial fl uid collections. There are no signs of acute infarction for technique. The diffusion portion, and p ostcontrast portion are unremarkable. Moderate degree of brain atrophy is seen. Moderate periventri cular white matter changes are seen nonspecific mostly consistent with chronic small vessel ischemic changes. CONCLUSION: Chronic small vessel ischemic and atrophic changes. Electronically signed by: Nilam Mustafa MD Board Certified Radiologist 05/04/2018 5:36 PM EST
--- NOTE | 2018-05-04 18:14 | MB ---
cc: Alexandra Frank MD DATE: 05/04/2018 HISTORY OF PRESENT ILLNESS: Mr. Cassidy is a 72-year-old white male with a history of dementia. He presented with altered mental status, generalized weakness, poor nutrition, weight loss. He has had dementia for at least 2 years. He was found to have elevated troponin. He has not had any chest pain or excessive dyspnea. He is undergoing neurologic evaluation by Dr. Stephenson. PAST MEDICAL HISTORY: Positive for dementia. No previous cardiac history. MEDICATIONS AT HOME: None. ALLERGIES: NONE. SOCIAL HISTORY: The patient does not smoke. He does not drink alcohol. He is . FAMILY HISTORY: Negative. REVIEW OF SYSTEMS: Otherwise negative. PHYSICAL EXAMINATION: VITAL SIGNS: Blood pressure 135/79, pulse 86, regular. HEENT: Negative. BREASTS: Clear. HEART: Regular with no murmur or gallop. ABDOMEN: Soft. No bruits. EXTREMITIES: Without edema. 2+ distal point. NEUROLOGIC: Nonfocal, though the patient is confused. EKG was reviewed and showed sinus tachycardia, left axis, left bundle branch block. LABORATORY DATA: Hemoglobin 12.5, potassium 3.5, creatinine 0.7. Troponin 0.18 and 0.18, AST 117, ALT 13. DIAGNOSES: 1. Elevated troponin. 2. Dementia. 3. Dehydration. 4. Failure to thrive. DISPOSITION: Mr. Cassidy has slightly elevated troponin, which is not trending. At this time, he does not have any cardiac symptoms. There is no evidence of acute coronary syndrome. We will obtain echocardiogram to evaluate his left ventricular function. He will be monitored on telemetry. Neurology evaluation in progress. Alexandra Frank MD OQ/ct , 05:07 PM , 05:15 PM MTDD
[2018-05-05 06:31] LABS: Hematocrit 38.8 % (39.0-51.0); Hemoglobin 12.5 gm/dL (13.0-17.0); Mean Corpuscular HGB Conc 32.2 % (32.0-36.0); Mean Corpuscular Hemoglobin 28.8 pg (27.0-34.0); Mean Corpuscular Volume 89.6 fL (80.0-100.0); Mean Platelet Volume 8.2 fL (7.0-11.0); Platelet Count 399 th/mm3 (150-450); Red Blood Count 4.32 mil/mm3 (4.50-5.90); Red Cell Distribution Width 13.5 % (11.6-17.2); White Blood Count 5.4 th/mm3 (4.0-11.0)
--- NOTE | 2018-05-05 09:34 | ECHRPT ---
Indication: CHEST PAIN CONCLUSIONS The left ventricular systolic function is severely reduced with an estimated ejection fraction in th e range of 20-25%. There is global left ventricular dysfunction. Wall thickness is normal. Mild thickening of the mitral valve leaflets. Trace mitral valve regurgitation. Aortic valve sclerosis is present. [id number] aortic valve regurgitation. Large Left pleural effusion BP: / HR: Rhythm: Sinus MEASUREMENTS (Male / Female) Normal Values Technical Quality:Good 2D ECHO LV Diastolic Diameter PLAX 5.6 cm 4.2 - 5.9 / 3.9 - 5.3 cm LV Systolic Diameter PLAX 4.8 cm IVS Diastolic Thickness 0.9 cm 0.6 - 1.0 / 0.6 - 0.9 cm LVPW Diastolic Thickness 0.9 cm 0.6 - 1.0 / 0.6 - 0.9 cm LV Relative Wall Thickness 0.3 RV Internal Dim ED PLAX 2.3 cm LVOT Diameter 2.2 cm LA Systolic Diameter LX 3.9 cm 3.0 - 4.0 / 2.7 - 3.8 cm LV Ejection Fraction MOD 4C 37.9 % LV Ejection Fraction 4C AL 38.6 % M-MODE Aortic Root Diameter MM 2.3 cm LA Systolic Diameter MM 3.9 cm LA Ao Ratio MM 1.7 AV Cusp Separation MM 1.2 cm DOPPLER AV Peak Velocity 193.0 cm/s AV Peak Gradient 14.9 mmHg AI Peak Velocity 277.5 cm/s AI Peak Gradient 30.8 mmHg AI Pressure Half Time 557.5 ms LVOT Peak Velocity 95.3 cm/s LVOT Peak Gradient 3.6 mmHg AV Area Cont Eq pk 1.9 cm MV Area PHT 6.9 cm Mitral E Point Velocity 72.6 cm/s Mitral A Point Velocity 76.0 cm/s Mitral E to A Ratio 1.0 LV E' Lateral Velocity 4.2 cm/s Mitral E to LV E' Lateral Ratio 17.3 LV E' Septal Velocity 4.1 cm/s Mitral E to LV E' Septal Ratio 17.8 PV Peak Velocity 80.1 cm/s PV Peak Gradient 2.6 mmHg FINDINGS LEFT VENTRICLE The left ventricular systolic function is severely reduced with an estimated ejection fraction in th e range of 20-25%. There is global left ventricular dysfunction. Normal left ventricular size. Wall thickness is normal. RIGHT VENTRICLE Normal right ventricular size and systolic function. LEFT ATRIUM The left atrial size is normal. RIGHT ATRIUM The right atrial size is normal. ATRIAL SEPTUM Normal atrial septal thickness without atrial level shunting by limited color doppler interrogation. AORTA The aortic root and proximal ascending aorta are normal in size on limited imaging. MITRAL VALVE Mild thickening of the mitral valve leaflets. Trace mitral valve regurgitation. AORTIC VALVE Trileaflet aortic valve. Aortic valve sclerosis is present. [id number] aortic valve regurgitation. TRICUSPID VALVE Structurally normal tricuspid valve. No tricuspid valve stenosis or regurgitation. PULMONARY VALVE The pulmonary valve is not well visualized. VESSELS The inferior vena cava is normal in size. PERICARDIUM No pericardial effusion. A left sided pleural effusion is present. Hany Woods MD (Electronically Signed) Final Date:05 May 2018 09:32
[2018-05-05] MEDS: Senna/Docusate Sodium 8.6/50 MG Tablet PO SCH ×2 (10:01→20:31)
--- NOTE | 2018-05-05 11:11 | P.PNNEU ---
Subjective Active Medications: Active Medications Acetaminophen (Tylenol) 650 mg PO Q4H PRN PRN Reason: Temp > 100.4 Al Hydroxide/Mg Hydroxide (Milk Of Magnesia Liq) 30 ml PO Q12H PRN PRN Reason: Mild Constipation Bisacodyl (Dulcolax Supp) 10 mg RECTAL DAILY PRN PRN Reason: SEVERE CONSITIPATION Calcium Carbonate (Tums Chew) 500 mg PO QID PRN PRN Reason: HEARTBURN Heparin Sodium (Porcine) (Heparin Inj) 2,500 units IV.PUSH UNSCH PRN PRN Reason: aPTT 25-39 Sodium Chloride (Ns Inj) 1,000 mls @ 84 mls/hr IV.CONT .[id number] [facility] Last Admin: 05/04/18 20:31 Dose: 84 mls/hr Lactulose (Lactulose Liq) 30 ml PO DAILY PRN PRN Reason: SEVERE CONSITIPATION Lorazepam (Ativan Inj) 1 mg IV.PUSH ONCE PRN PRN Reason: PRIOR TO MRI Last Admin: 05/04/18 19:04 Dose: 1 mg Lorazepam (Ativan Inj) 0.5 mg IV.PUSH Q6H PRN PRN Reason: ANXIETY Last Admin: 05/04/18 22:04 Dose: 0.5 mg Multivitamins (Theragran) [address] [facility] Last Admin: 05/05/18 10:02 Dose: Not Given Ondansetron HCl (Zofran Inj) 4 mg IV.PUSH Q6H PRN PRN Reason: NAUSEA OR VOMITING Senna/Docusate Sodium (Izabela-Colace) [address] [facility] Last Admin: 05/05/18 10:01 Dose: Not Given Sennosides (Senokot) 17.2 mg PO Q12H PRN PRN Reason: Moderate Constipation Sodium Chloride (Ns Flush) 2 ml IV.FLUSH PRN PRN PRN Reason: FLUSH AFTER USING IV ACCESS Sodium Chloride (Ns Flush) 2 ml IV.FLUSH PRN PRN PRN Reason: FLUSH AFTER USING IV ACCESS Sodium Chloride (Ns Flush) [address] [facility] Last Admin: 05/04/18 20:31 Dose: 2 ml Sodium Chloride (Ns Flush) 2 ml IV.FLUSH PRN PRN PRN Reason: FLUSH AFTER USING IV ACCESS Allergies/Adverse Reactions: Allergies Allergy/AdvReac Type Severity Reaction Status Date / Time No Known Allergies Allergy Uncoded 05/22/16 07:35 Physical Exam Vital signs: Vital Signs 05/04/18 11:20 05/04/18 12:00 05/04/18 14:00 Temperature 97.4 F L Pulse Rate 90 86 122 H Respiratory Rate 38 H 39 H Blood Pressure 135/79 135/79 133/72 Pulse Oximetry 05/04/18 15:00 05/04/18 16:00 05/04/18 16:19 Temperature Pulse Rate 100 H 94 H 90 Respiratory Rate 33 H 34 H 35 H Blood Pressure 114/60 119/72 Pulse Oximetry 05/04/18 18:00 05/04/18 18:23 05/04/18 18:24 Temperature Pulse Rate 100 H 90 Respiratory Rate 36 H Blood Pressure 129/71 Pulse Oximetry 05/04/18 20:00 05/04/18 22:00 05/05/18 00:00 Temperature 97.4 F L Pulse Rate 88 105 H 79 Respiratory Rate 28 H 34 H 24 Blood Pressure 129/71 141/77 H 131/74 Pulse Oximetry 98 98 98 05/05/18 02:00 05/05/18 04:00 05/05/18 06:00 Temperature Pulse Rate 76 80 69 Respiratory Rate 20 22 25 H Blood Pressure 101/55 L 104/61 107/57 L Pulse Oximetry 98 98 Intake & Output 05/04/18 05/05/18 05/05/18 18:59 06:59 18:59 Intake Total 1000 / 1000 1030 / 1030 Output Total 300 / 300 Balance 1000 / 1000 730 / 730 Intake: IV 1000 / 1000 1000 / 1000 NS Inj 1,000 ML @ 84 mls/hr IV. 1000 / 1000 1000 / 1000 CONT .[id number] [facility] Rx#: [id number] Oral 30 / 30 Output: Urine Amount (Catheter) 300 / 300 Indwelling Urethral Catheter 300 / 300 Other: # Bowel Movements 0 - Urinary Catheter Management Indwelling Urethral Catheter Cath placed during this visit: yes Reason for continuing: Hourly intake/output Insertion date: 05/02/18 Insertion time: 17:14 Objective Laboratory Results - last 24 hr 05/04/18 05/05/18 05/05/18 05:55 06:17 09:27 WBC 5.4 RBC 4.32 L Hgb 12.5 L Hct 38.8 L MCV 89.6 MCH 28.8 MCHC 32.2 RDW 13.5 Plt Count 399 MPV 8.2 Sodium 139 Potassium 3.5 D Chloride 108 H Carbon Dioxide 20.0 L Anion Gap 11 BUN 18 Creatinine 0.68 Estimated GFR Greater than 89 POC Glucose 78 Random Glucose 70 L Calcium 7.9 L Total Bilirubin 1.1 H AST 17 ALT 13 Alkaline Phosphatase 90 Total Protein 5.9 L D Albumin 2.0 L Microbiology 05/02/18 17:15 Urine Culture - Final Catheterized Urine No growth in 48 hours Review/Management - Review/Management Plan: imp i dw nurse slept 7 hours last pm well eeg and mri and labs ok b12 shot given try namenda they rebel clal me if agitated
[2018-05-05] MEDS: Sod Chloride 0.9% Inj 1,000 ML IV.CONT SCH (11:18)
--- NOTE | 2018-05-05 11:54 | P.PNFP ---
Subjective Interval history: He is arousable and remains confused at baseline and startles easily. Results - Labs Result diagrams: 05/05/18 06:17 05/04/18 05:55 Abnormal lab results 05/04/18 05/05/18 Range/Units 05:55 06:17 RBC 4.32 L (4.50-5.90) mil/mm3 Hgb 12.5 L (13.0-17.0) gm/dL Hct 38.8 L (39.0-51.0) % Chloride 108 H (98-107) meq/L Carbon Dioxide 20.0 L (21.0-32.0) meq/L Random Glucose 70 L (74-106) mg/dL Calcium 7.9 L (8.5-10.1) mg/dL Total Bilirubin 1.1 H (0.2-1.0) mg/dL Total Protein 5.9 L D (6.4-8.2) g/dL Albumin 2.0 L (3.4-5.0) g/dL Short CBC 05/05/18 Range/Units 06:17 WBC 5.4 (4.0-11.0) th/mm3 Hgb 12.5 L (13.0-17.0) gm/dL Hct 38.8 L (39.0-51.0) % Plt Count 399 (150-450) th/mm3 BMP 05/04/18 05:55 Sodium 139 Potassium 3.5 D Chloride 108 H Carbon Dioxide 20.0 L BUN 18 Creatinine 0.68 Calcium 7.9 L Liver Function 05/04/18 Range/Units 05:55 Total Bilirubin 1.1 H (0.2-1.0) mg/dL AST 17 (15-37) U/L ALT 13 (12-78) U/L Alkaline Phosphatase 90 (45-117) U/L Albumin 2.0 L (3.4-5.0) g/dL - Imaging Impressions Head MRI 05/04/18 19:12 CONCLUSION: Chronic small vessel ischemic and atrophic changes. Physical Exam Vital signs: Vital Signs 05/04/18 12:00 05/04/18 14:00 05/04/18 15:00 Temperature 97.4 F L Pulse Rate 86 122 H 100 H Respiratory Rate 39 H 33 H Blood Pressure 135/79 133/72 114/60 Pulse Oximetry 05/04/18 16:00 12/15/18 16:19 05/04/18 18:00 Temperature Pulse Rate 94 H 90 100 H Respiratory Rate 34 H 35 H Blood Pressure 119/72 Pulse Oximetry 05/04/18 18:23 05/04/18 18:24 05/04/18 20:00 Temperature 97.4 F L Pulse Rate 90 88 Respiratory Rate 36 H 28 H Blood Pressure 129/71 129/71 Pulse Oximetry 98 05/04/18 22:00 05/05/18 00:00 05/05/18 02:00 Temperature Pulse Rate 105 H 79 76 Respiratory Rate 34 H 24 20 Blood Pressure 141/77 H 131/74 101/55 L Pulse Oximetry 98 98 98 05/05/18 04:00 05/05/18 06:00 Temperature Pulse Rate 80 69 Respiratory Rate 22 25 H Blood Pressure 104/61 107/57 L Pulse Oximetry 98 Intake & Output 05/04/18 05/05/18 05/05/18 18:59 06:59 18:59 Intake Total 1000 / 1000 1030 / 1030 1000 / 1000 Output Total 300 / 300 Balance 1000 / 1000 730 / 730 1000 / 1000 Intake: IV 1000 / 1000 1000 / 1000 1000 / 1000 NS Inj 1,000 ML @ 84 mls/hr IV. 1000 / 1000 1000 / 1000 1000 / 1000 CONT .[id number] [facility] Rx#: [id number] Oral 30 / 30 Output: Urine Amount (Catheter) 300 / 300 Indwelling Urethral Catheter 300 / 300 Other: # Bowel Movements 0 - Constitutional no acute distress - Routine HEENT Exam Head: Present: normocephalic Eye: Present: PERRL ENT: Present: mucous membranes moist - Routine Neck Exam Present: supple, full ROM - Routine Respiratory Exam Present: CTA bilaterally - Routine Cardiovascular Exam Present: RRR - Routine Abdominal Exam Present: soft, normoactive bowel sounds - Routine Extremities Exam Present: full ROM - Routine Skin Exam Present: intact - Routine Neurological Exam Present: alert, altered mental status. Absent: oriented X3 - Detailed Neurological Exam: Coma Scale Eye Opening: Spontaneous Verbal Response: Confused Motor Response: Obey commands [place] Coma Scale Total: 14 - Routine Psychiatric Exam Present: anxious, agitated - Urinary Catheter Management Indwelling Urethral Catheter Cath placed during this visit: yes Reason for continuing: Hourly intake/output Insertion date: 05/02/18 Insertion time: 17:14 Assessment and Plan - Assessment (1) Acute dehydration Code(s): E86.0 - Dehydration Status: Acute Plan: No longer dehydrated with IVF but still not taking PO liquids (2) Adult failure to thrive Code(s): R62.7 - Adult failure to thrive Status: Acute Plan: Family reports not eating and has significant weight loss. Swallow eval, add appetite stimulant. Ensure ordered for yesterday but the RN reports his PO intake is very limited and only after much effort to get him to drink. (3) Dementia Code(s): F03.90 - Unspecified dementia without behavioral disturbance Status: Acute Plan: He has had significant decline in last month, Neuro following and has performed EEG and head MRI and bother were unremarkable. He was ambulatory and verbal last month and is pretty much back to baseline again today, though he is confused at his baseline. Neuro has started him on dementia med Namenda and cont to follow. (4) Elevated troponin Code(s): R74.8 - Abnormal levels of other serum enzymes Status: Acute Plan: Hard to assess chest pain, cardiology has cleared after echo and EKG. - Assessment and Plan 05/04/18 - He is back to baseline mentally and is confused and anxious. He is to have MRI per Neuro and Cards is considering transfer to for Cards W/U for elevated troponin. We will F/U Neuro and Cards recommendations and cont to monitor closely. I have also ordered Tums for his indigestion and will monitor closely. 05/05/18 - MRI and EEG unremarkable and Neuro has added namenda to his regimen. has declined referral for PEG and he is not taking an adequate amt of PO to avoid on-going dehydration and FTT. We have requested palliative Care Consult and referred to SNF for placement after D/C. F/U Neuro and Palliative Care recommendations. (3) Dementia Qualifiers: Dementia type: other frontotemporal dementia Dementia behavioral disturbance : with behavioral disturbance Qualified Code(s): G31.09 - Other frontotemporal dementia; F02.81 - Dementia in other diseases classified elsewhere with behavioral disturbance
--- NOTE | 2018-05-05 12:08 | MG ---
cc: Red Stephenson MD ELECTROENCEPHALOGRAM NUMBER: [id number] HISTORY: A 72-year-old male with dementia. DESCRIPTION: Symmetric alpha and beta rhythms are noted. A 7-8 Hz diffuse rhythm is seen. Muscle artifact is noted. No hemisphere asymmetries are noted. No epileptiform or seizure activity seen. He falls asleep with normal stage II sleep. Symmetric and synchronous. Hyperventilation not performed. Photic stimulation is performed without significant posterior driving. IMPRESSION: A normal awake and asleep electroencephalogram. No evidence for a focal or diffuse abnormality. MD ANGELA Bauer/jl , 09:26 AM , 09:29 AM
--- NOTE | 2018-05-05 16:50 | P.PNCA ---
Subjective Interval history: No CP or SOB, very confused Medications and Allergies Active Medications: Active Medications Acetaminophen (Tylenol) 650 mg PO Q4H PRN PRN Reason: Temp > 100.4 Al Hydroxide/Mg Hydroxide (Milk Of Magnesia Liq) 30 ml PO Q12H PRN PRN Reason: Mild Constipation Bisacodyl (Dulcolax Supp) 10 mg RECTAL DAILY PRN PRN Reason: SEVERE CONSITIPATION Calcium Carbonate (Tums Chew) 500 mg PO QID PRN PRN Reason: HEARTBURN Heparin Sodium (Porcine) (Heparin Inj) 2,500 units IV.PUSH UNSCH PRN PRN Reason: aPTT 25-39 Sodium Chloride (Ns Inj) 1,000 mls @ 84 mls/hr IV.CONT .[id number] [facility] Last Admin: 05/05/18 11:18 Dose: 84 mls/hr Lactulose (Lactulose Liq) 30 ml PO DAILY PRN PRN Reason: SEVERE CONSITIPATION Lorazepam (Ativan Inj) 1 mg IV.PUSH ONCE PRN PRN Reason: PRIOR TO MRI Last Admin: 05/04/18 19:04 Dose: 1 mg Lorazepam (Ativan Inj) 0.5 mg IV.PUSH Q6H PRN PRN Reason: ANXIETY Last Admin: 05/04/18 22:04 Dose: 0.5 mg Memantine (Namenda) 5 mg PO DAILY [facility] Last Admin: 05/05/18 15:41 Dose: 5 mg Multivitamins (Theragran) 1 tab PO DAILY [facility] Last Admin: 05/05/18 10:02 Dose: Not Given Ondansetron HCl (Zofran Inj) 4 mg IV.PUSH Q6H PRN PRN Reason: NAUSEA OR VOMITING Senna/Docusate Sodium (Izabela-Colace) 1 tab PO BID [facility] Last Admin: 05/05/18 10:01 Dose: Not Given Sennosides (Senokot) 17.2 mg PO Q12H PRN PRN Reason: Moderate Constipation Sodium Chloride (Ns Flush) 2 ml IV.FLUSH PRN PRN PRN Reason: FLUSH AFTER USING IV ACCESS Sodium Chloride (Ns Flush) 2 ml IV.FLUSH PRN PRN PRN Reason: FLUSH AFTER USING IV ACCESS Sodium Chloride (Ns Flush) 2 ml IV.FLUSH BID [facility] Last Admin: 05/05/18 11:20 Dose: 2 ml Sodium Chloride (Ns Flush) 2 ml IV.FLUSH PRN PRN PRN Reason: FLUSH AFTER USING IV ACCESS Allergies Allergy/AdvReac Type Severity Reaction Status Date / Time No Known Allergies Allergy Uncoded 05/22/16 07:35 Home Medications Medication Instructions Recorded Confirmed Type No Known Home Medications 05/02/18 05/02/18 History Physical Exam Vital signs: Vital Signs 05/04/18 18:00 05/04/18 18:23 05/04/18 18:24 Temperature Pulse Rate 100 H 90 Respiratory Rate 36 H Blood Pressure 129/71 Pulse Oximetry 05/04/18 20:00 05/04/18 22:00 05/05/18 00:00 Temperature 97.4 F L Pulse Rate 88 105 H 79 Respiratory Rate 28 H 34 H 24 Blood Pressure 129/71 141/77 H 131/74 Pulse Oximetry 98 98 98 05/05/18 02:00 05/05/18 04:00 05/05/18 06:00 Temperature Pulse Rate 76 80 69 Respiratory Rate 20 22 25 H Blood Pressure 101/55 L 104/61 107/57 L Pulse Oximetry 98 98 05/05/18 08:00 05/05/18 09:00 05/05/18 11:00 Temperature Pulse Rate 79 70 74 Respiratory Rate 20 22 22 Blood Pressure 104/47 L 114/61 Pulse Oximetry 99 Intake & Output 05/04/18 05/05/18 05/05/18 18:59 06:59 18:59 Intake Total 1000 / 1000 1030 / 1030 1000 / 1000 Output Total 300 / 300 Balance 1000 / 1000 730 / 730 1000 / 1000 Intake: IV 1000 / 1000 1000 / 1000 1000 / 1000 NS Inj 1,000 ML @ 84 mls/hr IV. 1000 / 1000 1000 / 1000 1000 / 1000 CONT .[id number] [facility] Rx#: [id number] Oral 30 / 30 Output: Urine Amount (Catheter) 300 / 300 Indwelling Urethral Catheter 300 / 300 Other: # Bowel Movements 0 - Constitutional no acute distress - Routine Respiratory Exam Present: rhonchi - Routine Cardiovascular Exam Present: RRR - Routine Abdominal Exam Present: soft - Routine Extremities Exam Absent: edema - Routine Skin Exam Absent: cyanosis - Routine Neurological Exam Present: altered mental status - Routine Psychiatric Exam Present: agitated - Urinary Catheter Management Indwelling Urethral Catheter Cath placed during this visit: yes Reason for continuing: Hourly intake/output Insertion date: 05/02/18 Insertion time: 17:14 Results 05/05/18 06:17 05/04/18 05:55 Cardiac Enzymes 05/04/18 Range/Units 05:55 AST 17 (15-37) U/L CBC 05/04/18 05/05/18 Range/Units 05:55 06:17 WBC 6.2 5.4 (4.0-11.0) th/mm3 RBC 4.30 L 4.32 L (4.50-5.90) mil/mm3 Hgb 12.5 L 12.5 L (13.0-17.0) gm/dL Hct 38.3 L 38.8 L (39.0-51.0) % Plt Count 362 399 (150-450) th/mm3 Comprehensive Metabolic Panel 05/04/18 Range/Units 05:55 Sodium 139 (136-145) meq/L Potassium 3.5 D (3.5-5.1) meq/L Chloride 108 H (98-107) meq/L Carbon Dioxide 20.0 L (21.0-32.0) meq/L BUN 18 (7-18) mg/dL Creatinine 0.68 (0.60-1.30) mg/dL Calcium 7.9 L (8.5-10.1) mg/dL AST 17 (15-37) U/L ALT 13 (12-78) U/L Alkaline Phosphatase 90 (45-117) U/L Total Protein 5.9 L D (6.4-8.2) g/dL Albumin 2.0 L (3.4-5.0) g/dL Intake and Output 05/05/18 05/05/18 05/05/18 06:59 14:59 22:59 Intake Total 30 / 30 1000 / 1000 Output Total 300 / 300 Balance -270 / -270 1000 / 1000 Intake: IV 1000 / 1000 NS Inj 1,000 ML @ 84 mls/hr IV. 1000 / 1000 CONT .[id number] [facility] Rx#: [id number] Oral 30 / 30 Output: Urine Amount (Catheter) 300 / 300 Indwelling Urethral Catheter 300 / 300 Other: # Bowel Movements 0 - Imaging and Cardiology Imaging: Impressions Head MRI 05/04/18 19:12 CONCLUSION: Chronic small vessel ischemic and atrophic changes. Assessment and Plan - Assessment (1) CHF (congestive heart failure) Code(s): I50.9 - Heart failure, unspecified Status: Acute (2) Cardiomyopathy Code(s): I42.9 - Cardiomyopathy, unspecified Status: Acute (3) Acute dehydration Code(s): E86.0 - Dehydration Status: Acute (4) Adult failure to thrive Code(s): R62.7 - Adult failure to thrive Status: Acute (5) Elevated troponin Code(s): R74.8 - Abnormal levels of other serum enzymes Status: Acute (6) Dementia Code(s): F03.90 - Unspecified dementia without behavioral disturbance Status: Acute - Plan Echo with severe LV systolic dysfunction. No evidence of ACS. BP too low to start beta mckinley or SHANE-I. Severe dementia present. Recommend palliative care evaluation. (6) Dementia Qualifiers: Dementia type: other frontotemporal dementia Dementia behavioral disturbance : with behavioral disturbance Qualified Code(s): G31.09 - Other frontotemporal dementia; F02.81 - Dementia in other diseases classified elsewhere with behavioral disturbance
[2018-05-06] MEDS: Sod Chloride 0.9% Inj 1,000 ML IV.CONT SCH ×3 (00:18→20:21)
[2018-05-06] MEDS: Senna/Docusate Sodium 8.6/50 MG Tablet PO SCH ×2 (09:00→21:47)
--- NOTE | 2018-05-06 09:27 | P.CONPAL ---
Consult Service: Palliative Care Requesting Physician: Vasquez Haywood Reason for Consult: a. To assist with evaluation and management of symptoms including: Encephalopathy, poor nutritional intake b. To assist medical decision maker(s) with: better understanding of current medical conditions; weighing benefits/burdens of medical treatment options; making medical treatment decisions. Primary Care Provider: Yomi Coleman DO History of Present Illness History of Present Illness: Mr. Cassidy is a 72-year-old male patient who presented to [place] ED on 2017 for evaluation of weakness. Patient has a known history of dementia; he follows Dr. Payne outpatient. His reports an acute decline in the past 3 weeks stating the patient is no longer eating and his speech has become nonsensical. Patient appeared quite ill with cachexia and mottled skin. Additionally, the family was concerned the patient may have an infection in his right great toe after hitting it on a piece of furniture several days before. Patient received a digital block and his right great toenail was removed without complications. Diagnostic data: * Vital signs: Pulse 80, respirations 14, BP 113/83, oxygen saturation 98% on room air, oral temperature 98 * WBC 7.0, hemoglobin 14.9, hematocrit 46.7, platelets 469, neutrophils 79.7% * PT: 14.7, INR 1.5, APTT 33.8 * Lactic acid: 2.2 * Sodium: 138, potassium 4.3, chloride 103, carbon dioxide 26.1, glucose 109, calcium 8.3, magnesium 2.7 * BUN: 31, creatinine 1.00, GFR 73 * Total bilirubin: 1.2, AST 13, ALT 14, alkaline phosphatase 113 * Troponin: 0.18 * Total protein: 6.9, albumin 2.4 * Urinalysis consistent with UTI; urine culture negative times 48 hours. * EKG showing sinus tachycardia with a left bundle branch block Dr. Frank, cardiology, evaluated the patient due to his elevated troponin level. Patient is asymptomatic an echocardiogram showed severely reduced ventricular systolic function with an EF in the range of 20-25%, there was global left ventricular dysfunction. wall thickness normal; mild thickening of the mitral valve leaflets; trace mitral valve regurgitation; aortic valve sclerosis was present; mild to moderate aortic valve regurgitation; large left pleural effusion. Recommendations for palliative evaluation. Dr. Stephenson, neurology, evaluated the patient. Patient received a B12 injection. MRI brain and EEG were unremarkable. Patient is having some intermittent agitation; he was started on Namenda. Patient's nutritional intake is poor. Dietary and speech therapy were consulted. Patient passed a swallow evaluation with recommendations for a regular diet with thin consistency liquids. Patient was started on supplemental shakes, may want to consider appetite stimulant if goals remain aggressive. However, family is refusing PEG tube placement. Palliative Care was consulted to assist with symptom management and to discuss with the family the benefits and burdens of her current illnesses and the options regarding future care. Patient was pleasantly confused, oriented to self on exam. He could tell me his name but did not know where he was. Speech was intermittently nonsensical. Nursing reports some agitation, pulling at Perry catheter. FAST 7A. Palliative care met with patient's and granddaughter. Medical update provided; prognosis discussed. Patient's feels strongly that the patient would not consent to PEG tube placement/artificial nutrition because it would not have any impact on the quality of his life. His granddaughter agrees. Mrs. Cassidy tells me that consenting to PEG tube placement would be selfish because she would be doing it just to keep him around. She is considering transition to comfort focused care. Hospice was consulted per family's request. . Function/Cognitive Trajectory: Patient has a known history of dementia that was diagnosed approximately 2 years ago. Patient had been forgetful but relatively independent until recently. Patient has had an approximate weight loss of 10+ pounds in recent months. Patient is no longer eating. His speech is often nonsensical, and the patient has become dependent for all of his care. Review of Systems other (ROS obtained through family report) Constitutional: Reports anorexia, Reports weight loss (10+ pound weight loss in the past 4-6 months.) Respiratory: Reports cough Gastrointestinal: Reports incontinent of stools Genitourinary: Reports urinary incontinence Neurologic: Reports abnormal speech, Reports confusion, Reports memory loss, Reports tremor(s) PMFSH - History History Provided By: Family Member - Medical History Medical History: Medical History (Last Updated 05/06/18 @ 14:42 by ADRIANA Bruner) Adult failure to thrive Cardiomyopathy Chronic back pain Dementia Spinal stenosis - Surgical History Surgical History: Surgical History (Last Updated 05/06/18 @ 14:41 by ADRIANA Bruner) History of mandibular surgery History of repair of hiatal hernia - Family History Family History: Family History (Last Updated 05/06/18 @ 14:45 by ADRIANA Bruner) Mother Dementia Father Diabetes Brother Myocardial infarction - Social History I have reviewed the patient's Social History: Yes - Tobacco History Second Hand Smoke Exposure: No Tobacco Use In Past 30 Days: No Smoking Status: Never smoker - Alcohol History How Often Do You Have a Drink Containing Alcohol: Never - Substance Use History Substance History: No History of Abuse - Travel History Recent Travel in the USA Within the Last 8 Weeks: No Recent Travel Out of the Country Within the Last 8 Weeks: No - Immunization History Tetanus Immunization: >5 Years Hx Influenza Vaccine This Season: No Medications and Allergies Active Medications: Active Medications Acetaminophen (Tylenol) 650 mg PO Q4H PRN PRN Reason: Temp > 100.4 Al Hydroxide/Mg Hydroxide (Milk Of Magnesia Liq) 30 ml PO Q12H PRN PRN Reason: Mild Constipation Bisacodyl (Dulcolax Supp) 10 mg RECTAL DAILY PRN PRN Reason: SEVERE CONSITIPATION Calcium Carbonate (Tums Chew) 500 mg PO QID PRN PRN Reason: HEARTBURN Cyanocobalamin (Vitamin B12 Inj) 1,000 mcg SQ DAILY [facility] Stop: 05/06/18 09:01 Last Admin: 05/05/18 19:44 Dose: 1,000 mcg Heparin Sodium (Porcine) (Heparin Inj) 2,500 units IV.PUSH UNSCH PRN PRN Reason: aPTT 25-39 Sodium Chloride (Ns Inj) 1,000 mls @ 84 mls/hr IV.CONT .[id number] [facility] Last Admin: 05/06/18 00:18 Dose: 84 mls/hr Lactulose (Lactulose Liq) 30 ml PO DAILY PRN PRN Reason: SEVERE CONSITIPATION Lorazepam (Ativan Inj) 1 mg IV.PUSH ONCE PRN PRN Reason: PRIOR TO MRI Last Admin: 05/04/18 19:04 Dose: 1 mg Lorazepam (Ativan Inj) 0.5 mg IV.PUSH Q6H PRN PRN Reason: ANXIETY Last Admin: 05/04/18 22:04 Dose: 0.5 mg Memantine (Namenda) 5 mg PO DAILY JUAN M Last Admin: 05/05/18 15:41 Dose: 5 mg Multivitamins (Theragran) 1 tab PO DAILY [facility] Last Admin: 05/05/18 10:02 Dose: Not Given Ondansetron HCl (Zofran Inj) 4 mg IV.PUSH Q6H PRN PRN Reason: NAUSEA OR VOMITING Senna/Docusate Sodium (Izabela-Colace) 1 tab PO BID [facility] Last Admin: 05/05/18 20:31 Dose: 1 tab Sennosides (Senokot) 17.2 mg PO Q12H PRN PRN Reason: Moderate Constipation Sodium Chloride (Ns Flush) 2 ml IV.FLUSH PRN PRN PRN Reason: FLUSH AFTER USING IV ACCESS Sodium Chloride (Ns Flush) 2 ml IV.FLUSH PRN PRN PRN Reason: FLUSH AFTER USING IV ACCESS Sodium Chloride (Ns Flush) 2 ml IV.FLUSH BID [facility] Last Admin: 05/05/18 20:31 Dose: Not Given Sodium Chloride (Ns Flush) 2 ml IV.FLUSH PRN PRN PRN Reason: FLUSH AFTER USING IV ACCESS Allergies Allergy/AdvReac Type Severity Reaction Status Date / Time No Known Allergies Allergy Uncoded 05/22/16 07:35 Home Medications Medication Instructions Recorded Confirmed Type No Known Home Medications 05/02/18 05/02/18 History Advance Directives Today's verbally stated goals: Patient has a known history of dementia. Fast 7A. He lacks insight and judgment related to his medical conditions. The patient is not expected to regain capacity for medical decision-making. Family/friends goals: Patient's does not wish to pursue further diagnostic procedures or aggressive interventions if they will not serve to improve the patient's quality of life. Ethical and Legal Issues: Per [place] statutes, in the absence of written advanced directives healthcare proxy decision making falls to the patient's . Physical Exam Vital Signs: Vital Signs - 24 hr 05/05/18 09:00 05/05/18 10:00 05/05/18 11:00 Temperature Pulse Rate 70 74 74 Respiratory Rate 22 22 Blood Pressure 104/47 L 114/61 Pulse Oximetry 05/05/18 12:00 05/05/18 14:00 05/05/18 15:59 Temperature Pulse Rate 68 84 104 H Respiratory Rate 24 38 H Blood Pressure 135/64 Pulse Oximetry 05/05/18 16:00 05/05/18 18:00 05/05/18 20:00 Temperature 97.3 F L Pulse Rate 90 82 93 H Respiratory Rate 21 28 H Blood Pressure 140/72 138/68 Pulse Oximetry 97 05/06/18 00:00 05/06/18 02:00 05/06/18 04:00 Temperature 98.2 F 97.4 F L Pulse Rate 103 H 90 87 Respiratory Rate 20 17 Blood Pressure 128/66 138/75 Pulse Oximetry 96 100 05/06/18 06:00 Temperature Pulse Rate 85 Respiratory Rate Blood Pressure Pulse Oximetry I&O: Intake & Output 05/04/18 05/05/18 05/06/18 05/07/18 06:59 06:59 06:59 06:59 Intake Total 1360 / 1360 2030 / 2030 2300 / 2300 Output Total 915 / 915 300 / 300 650 / 650 Balance 445 / 445 1730 / 1730 1650 / 1650 Weight 59.3 kg 60.2 kg Physical Exam: CONSTITUTIONAL/GENERAL: This is a frail, elderly man in no acute distress. TUBES/LINES/DRAINS: PIV SKIN: No jaundice, rashes, or lesions. Ecchymoses on upper extremities. No wounds seen anteriorly. Skin temperature appropriate. Not diaphoretic. HEAD: Atraumatic. Normocephalic. EYES: Pupils equal and round and reactive. Extraocular motions intact. No scleral icterus. No injection or drainage. Fundi not examined. ENT: Nose without bleeding or purulent drainage. Oral mucous membranes moist NECK: Trachea midline. Supple, nontender. No palpable thyroid enlargement or nodularity. CARDIOVASCULAR: Regular rate and rhythm without murmurs, gallops, or rubs. No JVD. Peripheral pulses symmetric. RESPIRATORY/CHEST: Symmetric, unlabored respirations. Clear to auscultation. Breath sounds equal bilaterally. No wheezes, rales, or rhonchi. GASTROINTESTINAL: Abdomen soft, non-tender, nondistended. No hepato-splenomegaly , or palpable masses. No guarding. Bowel sounds present. GENITOURINARY: Without palpable bladder distension. MUSCULOSKELETAL: Extremities without clubbing, cyanosis, or edema. No joint tenderness or effusion noted. No calf tenderness. No mottling or clubbing. LYMPHATICS: No palpable cervical or supraclavicular adenopathy. NEUROLOGICAL: Awake and alert. Patient is oriented to self, able to tell me his 's name. Speech is nonsensical at times. PSYCHIATRIC: No obvious anxiety/depression. No apparent hallucinations or other psychotic thought process. Diagnostic Tests Laboratory: Laboratory Results - last 72 hr 05/03/18 05/03/18 05/04/18 20:20 20:20 05:55 WBC RBC Hgb Hct MCV MCH MCHC RDW Plt Count MPV ESR 61 H Sodium Potassium Chloride Carbon Dioxide Anion Gap BUN Creatinine Estimated GFR POC Glucose Random Glucose Calcium Total Bilirubin AST ALT Alkaline Phosphatase Ammonia 14 Total Protein Total Protein (PEP) 6.6 Albumin Vitamin B12 209 TSH 2.750 Free T4 1.26 Rheumatoid Factor Scrn Negative Rheumatoid Factor Titer Not Reportable 05/04/18 05/04/18 05/05/18 05:55 05:55 06:17 WBC 6.2 5.4 RBC 4.30 L 4.32 L Hgb 12.5 L 12.5 L Hct 38.3 L 38.8 L MCV 89.1 89.6 MCH 29.1 28.8 MCHC 32.6 32.2 RDW 13.2 13.5 Plt Count 362 399 MPV 8.4 8.2 ESR Sodium 139 Potassium 3.5 D Chloride 108 H Carbon Dioxide 20.0 L Anion Gap 11 BUN 18 Creatinine 0.68 Estimated GFR Greater than 89 POC Glucose Random Glucose 70 L Calcium 7.9 L Total Bilirubin 1.1 H AST 17 ALT 13 Alkaline Phosphatase 90 Ammonia Total Protein 5.9 L D Total Protein (PEP) Albumin 2.0 L Vitamin B12 TSH Free T4 Rheumatoid Factor Scrn Rheumatoid Factor Titer 05/05/18 05/05/18 05/05/18 09:27 12:12 18:32 WBC RBC Hgb Hct MCV MCH MCHC RDW Plt Count MPV ESR Sodium Potassium Chloride Carbon Dioxide Anion Gap BUN Creatinine Estimated GFR POC Glucose 78 79 90 Random Glucose Calcium Total Bilirubin AST ALT Alkaline Phosphatase Ammonia Total Protein Total Protein (PEP) Albumin Vitamin B12 TSH Free T4 Rheumatoid Factor Scrn Rheumatoid Factor Titer 05/06/18 07:52 WBC RBC Hgb Hct MCV MCH MCHC RDW Plt Count MPV ESR Sodium Potassium Chloride Carbon Dioxide Anion Gap BUN Creatinine Estimated GFR POC Glucose 85 Random Glucose Calcium Total Bilirubin AST ALT Alkaline Phosphatase Ammonia Total Protein Total Protein (PEP) Albumin Vitamin B12 TSH Free T4 Rheumatoid Factor Scrn Rheumatoid Factor Titer Result Diagrams: 05/05/18 06:17 05/04/18 05:55 Microbiology: Microbiology 05/02/18 17:15 Urine Culture - Final Catheterized Urine No growth in 48 hours Imaging: Head MRI 05/04/18 19:12 CONCLUSION: Chronic small vessel ischemic and atrophic changes. Patient/Family Conference Present at Family Conference: Met with patient's (Judith) and granddaughter (Annette). Family Conference Location: Bedside, Consult Room, Telephone Issues Discussed: * Palliative care role, purpose, approach * Additional medical, psychosocial, and spiritual history * Patients general health, functional status, and cognitive changes in the months leading up to the current hospitalization * Patient/family understanding of the current medical problems * Patient/family understanding of prognosis * Patients goals of care as best understood from advance directives and/or conversations and/or values * Current medical treatment options and benefits/burdens of those options * Likely scenarios comparing ongoing aggressive care with a transition to comfort measures only * Questions answered to the best of my ability * Palliative care contact information provided Assessment and Plan - Disease Oriented Problem List (1) Acute dehydration (2) Adult failure to thrive (3) Elevated troponin (4) Dementia (5) Cardiomyopathy Pertinent Non-Medical Issues: Psychosocial: Patient is originally from [place]. He had 4 brothers and one sister. He and his were on a double date with other people when they met in 11th grade. They moved to [place] right after they graduated from high school in 1962. Together they had to sons (Rommel and Leonard) who live locally. Spiritual: Legal: Per [place] statutes, in the absence of written advanced directives healthcare proxy decision making falls to the patient's Ethical issues impacting care: No known ethical issues impacting care at this time. . Important Contacts: Kathryn Cassidy, : [phone] (H) or [phone] (C) Prognosis: Patient is a 72-year-old male with a history of cardiomyopathy, dementia and adult failure to thrive. He has experienced an acute decline in recent months as evidenced by 10+ pound weight loss, nonsensical speech and dependence for all ADLs. Recent echocardiogram with EF20-25%. Patient is refusing nutritional intake and his family does not want to proceed with PEG tube placement/ artificial nutrition. Given patient's advanced age, recent decline, severe dementia, cardiomyopathy and poor nutritional intake, life expectancy is likely <6 months. Code Status: Alternative Code (ACLS drugs only) Plan: * ALTERNATE CODE (ACLS meds only) * Decision making: Patient does not have insight or judgment related to his medical conditions. He is not expected to regain capacity for medical decision- making. Per [place] statutes, in the absence of written advanced directives healthcare proxy decision making would fall to the patient's , Kathryn Cassidy. * Patient discussed with bedside nurse, [place]. * Palliative care contact information provided to patient's * Palliative care met with the patient's and granddaughter today 2017 at 1:30 PM. Aggressive versus comfort oriented goals were discussed, including the process of cardiopulmonary resuscitation, per family request. Hospice was consulted. Spoke with Carla at hospice intake. Nurse, Virginia, notified. * Symptom management-encephalopathy: Multifactoral. Contributing factors include known history of dementia, recent UTI, electrolyte imbalances, acute hospitalization etc. Patient follows Dr. Payne (neurology) outpatient. Recent EEG and MRI of the head were unremarkable. Neurology was consulted inpatient; patient evaluated by Dr. Stephenson. Started on Namenda. * Symptom management-decreased nutritional intake: Patient with minimal nutritional intake times 3 weeks. BMI 22.8. Patient has lost 10% of his body weight in the past 4 months. Dietary was consulted; recommendations for supplemental shakes BID. Swallow evaluation was ordered and passed; patient remains on a regular diet with thin consistency liquids. Patient will require PEG tube placement if goals remain aggressive, however the family is adamantly refusing artificial nutrition stating it will not improve the patient's quality of life. Hospice consult pending. * Palliative care will continue following this patient throughout his hospitalization to establish trust, assist with symptom management and clarification of medical treatment goals. Appreciation Thank you for the opportunity to participate in the care of Yomi Cassidy. Attestation Attestation: To help prompt me to consider important information that might be impacting today's encounter and assessment, information from prior notes written by myself or my colleagues may have been "brought forward" into today's note. My signature on this note, however, is an attestation that I personally performed the exam, history, and/or decision-making noted today, and, unless otherwise indicated, the interactions with patient, family, and staff as well as the review of records all occurred today. I also attest that the listed assessment and stated plan reflect my best clinical judgment today based on the combination of historical information, prior notes, and today's exam/ interactions. When time spent is documented, it refers only to time spent today by the signer, or if indicated, combined time spent today by collaborating physician/nurse practitioner.
--- NOTE | 2018-05-06 11:58 | P.PNFP ---
Subjective Interval history: Delayed entry, seen this am he is in wrist restraints He appears comfortable, he is confused Results - Labs Result diagrams: 05/05/18 06:17 05/04/18 05:55 Physical Exam Vital signs: Vital Signs 05/05/18 12:00 05/05/18 14:00 05/05/18 15:59 Temperature Pulse Rate 68 84 104 H Respiratory Rate 24 38 H Blood Pressure 135/64 Pulse Oximetry 05/05/18 16:00 05/05/18 18:00 05/05/18 20:00 Temperature 97.3 F L Pulse Rate 90 82 93 H Respiratory Rate 21 28 H Blood Pressure 140/72 138/68 Pulse Oximetry 97 05/06/18 00:00 05/06/18 02:00 05/06/18 04:00 Temperature 98.2 F 97.4 F L Pulse Rate 103 H 90 87 Respiratory Rate 20 17 Blood Pressure 128/66 138/75 Pulse Oximetry 96 100 05/06/18 06:00 05/06/18 08:00 Temperature 97.6 F Pulse Rate 85 104 H Respiratory Rate 38 H Blood Pressure 147/71 H Pulse Oximetry 99 Intake & Output 05/05/18 05/06/18 05/06/18 18:59 06:59 18:59 Intake Total 1240 / 1240 1060 / 1060 Output Total 300 / 300 350 / 350 Balance 940 / 940 710 / 710 Weight 60.2 kg Intake: IV 1000 / 1000 1000 / 1000 NS Inj 1,000 ML @ 84 mls/hr IV. 1000 / 1000 1000 / 1000 CONT .[id number] [facility] Rx#: [id number] Oral 240 / 240 60 / 60 Output: Urine 350 / 350 Urine Amount (Catheter) 300 / 300 Indwelling Urethral Catheter 300 / 300 Other: Date of Last Bowel Movement 05/05/18 05/05/18 # Bowel Movements 1 0 - Constitutional no acute distress - Routine HEENT Exam Eye: Present: PERRL ENT: Present: mucous membranes moist - Routine Respiratory Exam Present: CTA bilaterally - Routine Cardiovascular Exam Present: S1, S2 - Routine Abdominal Exam Present: soft, normoactive bowel sounds - Routine Skin Exam Present: dry, warm - Routine Neurological Exam Present: alert - Urinary Catheter Management Indwelling Urethral Catheter Cath placed during this visit: yes Reason for continuing: Hourly intake/output Insertion date: 05/02/18 Insertion time: 17:14 Assessment and Plan - Assessment (1) Acute dehydration Code(s): E86.0 - Dehydration Status: Acute Plan: No longer dehydrated with IVF but still not taking PO liquids (2) Adult failure to thrive Code(s): R62.7 - Adult failure to thrive Status: Acute Plan: Family reports not eating and has significant weight loss. Swallow eval, add appetite stimulant. Ensure ordered for yesterday but the RN reports his PO intake is very limited and only after much effort to get him to drink. (3) Dementia Code(s): F03.90 - Unspecified dementia without behavioral disturbance Status: Acute Plan: He has had significant decline in last month, Neuro following and has performed EEG and head MRI and bother were unremarkable. He was ambulatory and verbal last month and is pretty much back to baseline again today, though he is confused at his baseline. Neuro has started him on dementia med Namenda and cont to follow. (4) Elevated troponin Code(s): R74.8 - Abnormal levels of other serum enzymes Status: Acute Plan: Hard to assess chest pain, cardiology has cleared after echo and EKG. - Assessment and Plan 05/04/18 - He is back to baseline mentally and is confused and anxious. He is to have MRI per Neuro and Cards is considering transfer to for Cards W/U for elevated troponin. We will F/U Neuro and Cards recommendations and cont to monitor closely. I have also ordered Tums for his indigestion and will monitor closely. 05/05/18 - MRI and EEG unremarkable and Neuro has added namenda to his regimen. has declined referral for PEG and he is not taking an adequate amt of PO to avoid on-going dehydration and FTT. We have requested palliative Care Consult and referred to SNF for placement after D/C. F/U Neuro and Palliative Care recommendations. 05/06/18- Seen thia am, he is confused but appears comfortable. Will tranfer to medical floor, Juvenal echols. Per notes family declines feeding tube, Palliative care consulted. Comanagement working on placement. He will need nutrition source or be signed up with Hospice for any facility to accept him. Will Dc when arrangements made. (3) Dementia Qualifiers: Dementia type: other frontotemporal dementia Dementia behavioral disturbance : with behavioral disturbance Qualified Code(s): G31.09 - Other frontotemporal dementia; F02.81 - Dementia in other diseases classified elsewhere with behavioral disturbance
[2018-05-06 14:59] LABS: Anti-Nuclear Antibody Screen Neg (Neg)
--- NOTE | 2018-05-06 18:01 | P.PNNEU ---
Subjective Medication List: up in chair not eating much awake alert Active Medications: Active Medications Acetaminophen (Tylenol) 650 mg PO Q4H PRN PRN Reason: Temp > 100.4 Al Hydroxide/Mg Hydroxide (Milk Of Magnesia Liq) 30 ml PO Q12H PRN PRN Reason: Mild Constipation Bisacodyl (Dulcolax Supp) 10 mg RECTAL DAILY PRN PRN Reason: SEVERE CONSITIPATION Calcium Carbonate (Tums Chew) 500 mg PO QID PRN PRN Reason: HEARTBURN Heparin Sodium (Porcine) (Heparin Inj) 2,500 units IV.PUSH UNSCH PRN PRN Reason: aPTT 25-39 Sodium Chloride (Ns Inj) 1,000 mls @ 84 mls/hr IV.CONT .[id number] [facility] Last Admin: 05/06/18 00:18 Dose: 84 mls/hr Lactulose (Lactulose Liq) 30 ml PO DAILY PRN PRN Reason: SEVERE CONSITIPATION Lorazepam (Ativan Inj) 1 mg IV.PUSH ONCE PRN PRN Reason: PRIOR TO MRI Last Admin: 05/04/18 19:04 Dose: 1 mg Lorazepam (Ativan Inj) 0.5 mg IV.PUSH Q6H PRN PRN Reason: ANXIETY Last Admin: 05/04/18 22:04 Dose: 0.5 mg Memantine (Namenda) 5 mg PO DAILY [facility] Last Admin: 05/05/18 15:41 Dose: 5 mg Multivitamins (Theragran) 1 tab PO DAILY [facility] Last Admin: 05/05/18 10:02 Dose: Not Given Ondansetron HCl (Zofran Inj) 4 mg IV.PUSH Q6H PRN PRN Reason: NAUSEA OR VOMITING Senna/Docusate Sodium (Izabela-Colace) 1 tab PO BID [facility] Last Admin: 05/05/18 20:31 Dose: 1 tab Sennosides (Senokot) 17.2 mg PO Q12H PRN PRN Reason: Moderate Constipation Sodium Chloride (Ns Flush) 2 ml IV.FLUSH PRN PRN PRN Reason: FLUSH AFTER USING IV ACCESS Sodium Chloride (Ns Flush) 2 ml IV.FLUSH PRN PRN PRN Reason: FLUSH AFTER USING IV ACCESS Sodium Chloride (Ns Flush) 2 ml IV.FLUSH BID [facility] Last Admin: 05/05/18 20:31 Dose: Not Given Sodium Chloride (Ns Flush) 2 ml IV.FLUSH PRN PRN PRN Reason: FLUSH AFTER USING IV ACCESS Allergies/Adverse Reactions: Allergies Allergy/AdvReac Type Severity Reaction Status Date / Time No Known Allergies Allergy Uncoded 05/22/16 07:35 Physical Exam Vital signs: Vital Signs 05/05/18 20:00 05/06/18 00:00 05/06/18 02:00 Temperature 97.3 F L 98.2 F Pulse Rate 93 H 103 H 90 Respiratory Rate 28 H 20 Blood Pressure 138/68 128/66 Pulse Oximetry 97 96 05/06/18 04:00 05/06/18 06:00 05/06/18 08:00 Temperature 97.4 F L 97.6 F Pulse Rate 87 85 104 H Respiratory Rate 17 38 H Blood Pressure 138/75 147/71 H Pulse Oximetry 100 99 05/06/18 12:00 Temperature 98.3 F Pulse Rate 87 Respiratory Rate 30 H Blood Pressure 142/81 H Pulse Oximetry 96 Intake & Output 05/05/18 05/06/18 05/06/18 18:59 06:59 18:59 Intake Total 1240 / 1240 1060 / 1060 Output Total 300 / 300 350 / 350 Balance 940 / 940 710 / 710 Weight 60.2 kg Intake: IV 1000 / 1000 1000 / 1000 NS Inj 1,000 ML @ 84 mls/hr IV. 1000 / 1000 1000 / 1000 CONT .[id number] [facility] Rx#: [id number] Oral 240 / 240 60 / 60 Output: Urine 350 / 350 Urine Amount (Catheter) 300 / 300 Indwelling Urethral Catheter 300 / 300 Other: Date of Last Bowel Movement 05/05/18 05/05/18 # Bowel Movements 1 0 - Urinary Catheter Management Indwelling Urethral Catheter Cath placed during this visit: yes Reason for continuing: Hourly intake/output Insertion date: 05/02/18 Insertion time: 17:14 Objective Laboratory Results - last 24 hr 05/03/18 05/05/18 05/06/18 20:20 18:32 07:52 POC Glucose 90 85 JULIETTE Screen Neg RPR Nonreactive 05/06/18 05/06/18 12:00 17:17 POC Glucose 108 101 JULIETTE Screen RPR Review/Management - Review/Management Plan: imp i dw nurse slept 7 hours last pm well eeg and mri and labs ok b12 shot given try nimoa they will call me if agitated -------- 05/06/18 no major change doing well up in chair will sign off cont juan miguel ad
[2018-05-07] MEDS: Sod Chloride 0.9% Inj 1,000 ML IV.CONT SCH ×2 (07:09→18:21)
[2018-05-07] MEDS: Senna/Docusate Sodium 8.6/50 MG Tablet PO SCH ×2 (08:51→21:54)
[2018-05-07 09:10] LABS: Chloride 111 meq/L (98-107); Potassium 3.1 meq/L (3.5-5.1); Sodium 143 meq/L (136-145)
[2018-05-07 09:12] LABS: Calcium 8.3 mg/dL (8.5-10.1)
[2018-05-07 09:13] LABS: Anion Gap 12 meq/L (5-15); Blood Urea Nitrogen 8 mg/dL (7-18); Carbon Dioxide 20.5 meq/L (21.0-32.0); Glucose,Random 92 mg/dL (74-106)
[2018-05-07 09:15] LABS: Hemoglobin 12.7 gm/dL (13.0-17.0); Mean Corpuscular HGB Conc 32.6 % (32.0-36.0); Mean Corpuscular Hemoglobin 29.4 pg (27.0-34.0); Mean Platelet Volume 7.8 fL (7.0-11.0); Platelet Count 376 th/mm3 (150-450); Red Blood Count 4.33 mil/mm3 (4.50-5.90); Red Cell Distribution Width 13.3 % (11.6-17.2); White Blood Count 5.5 th/mm3 (4.0-11.0)
[2018-05-07 09:17] LABS: Glomerular Filtration Rate Greater Than 89 mL/min (>89)
--- NOTE | 2018-05-07 12:00 | P.PNFP ---
Subjective Interval history: Seen this am, he has been transferred out of ICU He is alert, more conversive nonsensical talk Appears comfortable. Results - Labs Result diagrams: 05/07/18 08:35 05/07/18 08:35 Abnormal lab results 05/03/18 05/07/18 05/07/18 Range/Units 20:20 08:35 08:35 RBC 4.33 L (4.50-5.90) mil/mm3 Hgb 12.7 L (13.0-17.0) gm/dL Potassium 3.1 L (3.5-5.1) meq/L Chloride 111 H (98-107) meq/L Carbon Dioxide 20.5 L (21.0-32.0) meq/L Creatinine 0.51 L (0.60-1.30) mg/dL Calcium 8.3 L (8.5-10.1) mg/dL Albumin (PEP) 2.84 L (3.50-5.00) gm/dL Albumin/Globulin Ratio 0.76 L (1.39-2.23) Spnpi-0-Npjvnydyv 0.36 H (0.11-0.29) gm/dL Beta Globulins 1.06 H (0.53-1.03) gm/dL Gamma Globulins 1.41 H (0.50-1.39) gm/dL Short CBC 05/07/18 Range/Units 08:35 WBC 5.5 (4.0-11.0) th/mm3 Hgb 12.7 L (13.0-17.0) gm/dL Hct 39.0 (39.0-51.0) % Plt Count 376 (150-450) th/mm3 BMP 05/07/18 08:35 Sodium 143 Potassium 3.1 L Chloride 111 H Carbon Dioxide 20.5 L BUN 8 Creatinine 0.51 L Calcium 8.3 L Physical Exam Vital signs: Vital Signs 05/06/18 12:00 05/06/18 14:00 05/06/18 15:00 Temperature 98.3 F Pulse Rate 92 H 104 H 108 H Respiratory Rate 30 H 37 H 49 H Blood Pressure 142/81 H 143/77 H 170/92 H Pulse Oximetry 96 05/06/18 16:00 05/06/18 17:00 05/06/18 18:00 Temperature Pulse Rate 110 H 114 H 110 H Respiratory Rate 31 H 33 H 35 H Blood Pressure 155/83 H 156/92 H 137/98 H Pulse Oximetry 05/06/18 20:00 05/07/18 00:00 05/07/18 04:00 Temperature 97.6 F 98.0 F 98.1 F Pulse Rate 86 103 H 99 H Respiratory Rate 22 20 16 Blood Pressure 140/81 150/82 H 134/67 Pulse Oximetry 94 L 95 05/07/18 08:00 05/07/18 08:03 Temperature 97.1 F L Pulse Rate 109 H Respiratory Rate 21 Blood Pressure 140/68 Pulse Oximetry 97 95 Intake & Output 05/06/18 05/07/18 05/07/18 18:59 06:59 18:59 Intake Total 1120 / 1120 1165 / 1165 Output Total 225 / 225 600 / 600 200 / 200 Balance 895 / 895 -600 / -600 965 / 965 Weight 61.6 kg Intake: IV 1000 / 1000 925 / 925 NS Inj 1,000 ML @ 84 mls/hr IV. 1000 / 1000 925 / 925 CONT .[id number] [facility] Rx#: [id number] Oral 120 / 120 240 / 240 Output: Urine 225 / 225 600 / 600 200 / 200 Other: # Voids 2 4 # Incontinent Voids 1 # Urine Diapers 3 Date of Last Bowel Movement 05/05/18 05/05/18 05/07/18 # Bowel Movements 1 - Constitutional no acute distress - Routine HEENT Exam Eye: Present: PERRL ENT: Present: mucous membranes moist - Routine Respiratory Exam Present: CTA bilaterally - Routine Cardiovascular Exam Present: S1, S2 - Routine Abdominal Exam Present: soft - Routine Extremities Exam Present: pulses intact - Routine Skin Exam Present: dry, warm - Routine Neurological Exam Present: alert - Urinary Catheter Management Indwelling Urethral Catheter Cath placed during this visit: yes Reason for continuing: Hourly intake/output Insertion date: 05/02/18 Insertion time: 17:14 Assessment and Plan - Assessment (1) Acute dehydration Code(s): E86.0 - Dehydration Status: Acute Plan: No longer dehydrated with IVF but still not taking PO liquids (2) Adult failure to thrive Code(s): R62.7 - Adult failure to thrive Status: Acute Plan: Family reports not eating and has significant weight loss. Swallow eval, add appetite stimulant. Ensure ordered for yesterday but the RN reports his PO intake is very limited and only after much effort to get him to drink. (3) Dementia Code(s): F03.90 - Unspecified dementia without behavioral disturbance Status: Acute Plan: He has had significant decline in last month, Neuro following and has performed EEG and head MRI and bother were unremarkable. He was ambulatory and verbal last month and is pretty much back to baseline again today, though he is confused at his baseline. Neuro has started him on dementia med Namenda and cont to follow. (4) Elevated troponin Code(s): R74.8 - Abnormal levels of other serum enzymes Status: Acute Plan: Hard to assess chest pain, cardiology has cleared after echo and EKG. - Assessment and Plan 05/04/18 - He is back to baseline mentally and is confused and anxious. He is to have MRI per Neuro and Cards is considering transfer to for Cards W/U for elevated troponin. We will F/U Neuro and Cards recommendations and cont to monitor closely. I have also ordered Tums for his indigestion and will monitor closely. 05/05/18 - MRI and EEG unremarkable and Neuro has added namenda to his regimen. has declined referral for PEG and he is not taking an adequate amt of PO to avoid on-going dehydration and FTT. We have requested palliative Care Consult and referred to SNF for placement after D/C. F/U Neuro and Palliative Care recommendations. 05/06/18- Seen thia am, he is confused but appears comfortable. Will tranfer to medical floor, Juvenal echols. Per notes family declines feeding tube, Palliative care consulted. Comanagement working on placement. He will need nutrition source or be signed up with Hospice for any facility to accept him. Will Dc when arrangements made. - Patient transferred to medical floor. Vss afebrile. He is alert this am. Potassium low this am at 3.1, will replace. Food tray in front of him, he has not eaten anything. TT with spouse via telephone. Again peg tube declined, They are planning to meet with Hospice at 11am. They are deciding between home w / Hospice or SNF. Discussed with CM, will dc when arrangements made. (3) Dementia Qualifiers: Dementia type: other frontotemporal dementia Dementia behavioral disturbance : with behavioral disturbance Qualified Code(s): G31.09 - Other frontotemporal dementia; F02.81 - Dementia in other diseases classified elsewhere with behavioral disturbance
--- NOTE | 2018-05-08 08:41 | P.DS ---
Date of admission: 05/02/18 18:44 Primary care physician: Yomi Coleman DO Brief History from admission: History taken from chart, Patient unable to provide any information Per notes woke brought him for Weakness and toe pain. He has not been eating and family reports significant weight loss. He was last seen in office April 08, he was ambulatory, and verbal. Past medical history is Dementia, Insomnia. He is not on any medications. DS: Diagnosis - Discharge Diagnosis (1) Acute dehydration Status: Acute (2) Adult failure to thrive Status: Acute (3) Dementia Status: Acute (4) Elevated troponin Status: Acute DS: Summary Hospital Course: Admitted for dehydration and failure to thrive. Seen by neurology for AMS, dementia started on Namenda, cardiology consulted for elevated troponin. Workup completed palliative care suggested. Due to progression of dementia and failure to thrive family would like to bring patient home with Hospice services. - Time Spent with Patient Total time spent providing and/or coordinating discharge services:20 Less than 30 minutes - Quality: AMI Clinical Trial Participant: No - Quality: Stroke Symptom Onset Unknown: No - Quality: VTE Is this test being ordered to rule out VTE?: No Deep Vein Thrombosis/Pulmonary Embolism Present on Admission: No Exam Vital signs: Vital Signs 05/07/18 12:00 05/07/18 16:00 05/07/18 20:00 Temperature 97.6 F 98.2 F 97.5 F L Pulse Rate 82 105 H 106 H Respiratory Rate 21 19 18 Blood Pressure 138/70 145/77 H 144/66 H Pulse Oximetry 96 97 97 05/08/18 00:00 Temperature 97.4 F L Pulse Rate 95 H Respiratory Rate 18 Blood Pressure 150/80 H Pulse Oximetry 95 Intake & Output 05/07/18 05/08/18 05/08/18 18:59 06:59 18:59 Intake Total 2285 / 2285 Output Total 200 / 200 Balance 2084 / 2084 Weight 61.3 kg Intake: IV 1924 NS Inj 1,000 ML @ 84 mls/hr IV. 1924 CONT .[id number] [facility] Rx#: [id number] Oral 360 / 360 Output: Urine 200 / 200 Other: Date of Last Bowel Movement 05/07/18 05/07/18 - Constitutional no acute distress - Routine HEENT Exam Eye: Present: PERRL ENT: Present: mucous membranes moist - Routine Neck Exam Present: supple - Routine Respiratory Exam Present: CTA bilaterally - Routine Cardiovascular Exam Present: S1, S2 - Routine Skin Exam Present: dry, warm - Routine Neurological Exam Present: alert Results Procedures completed during hospitalization: na Labs on day of discharge: Labs from last 24 hours 05/07/18 05/07/18 05/03/18 08:35 08:35 20:20 WBC 5.5 RBC 4.33 L Hgb 12.7 L Hct 39.0 MCV 90.0 MCH 29.4 MCHC 32.6 RDW 13.3 Plt Count 376 MPV 7.8 Sodium 143 Potassium 3.1 L Chloride 111 H Carbon Dioxide 20.5 L Anion Gap 12 BUN 8 Creatinine 0.51 L Estimated GFR Greater than 89 Random Glucose 92 Calcium 8.3 L PEP Pathologist Comment - Impressions ITS Impressions Head MRI 05/04/18 19:12 CONCLUSION: Chronic small vessel ischemic and atrophic changes. Discharge Plan - Discharge Disposition Patient Disposition: 50 Hospice/Home - Discharge Condition Condition: Stable - Discharge Order Discharge Orders: Discharge Order (Routine); Ordered 05/08/18 Ordered By: Carla Reed ED Use Only Admit Order (Routine); Ordered 05/02/18 Ordered By: Chelsie Hernández - Physicians Team Primary Care Provider: Yomi Coleman Attending Provider: Yomi Coleman Other Providers: Alexandra Frank MD ; Red Sal MD ; Geoff Sanz MD ; [facility],[place]
[2018-05-08] MEDS: Senna/Docusate Sodium 8.6/50 MG Tablet PO SCH (08:50)
[2018-05-08] MEDS: Sod Chloride 0.9% Inj 1,000 ML IV.CONT SCH (08:51)
== END 2018-05-08 10:50 | disposition hospice, home (50) ==
LOC: PHED 15:48 → PHEDA 18:44 → PHICU 21:33 → PH3 05-07 05:25
PROVIDERS: ADMIT Family Medicine; ATTEND Family Medicine